=== PATIENT | female | born 1960 | race Caucasian/White ===

== ENCOUNTER → 2025-01-27 | Outpatient (CLI) | payer OTHER, SELFPAY | END | disposition home or self-care (01) | LOC: LABSPEC 16:50 | PROVIDERS: Referring Provider Nurse Practitioner Family; Visit Provider Nurse Practitioner Family | DX: N89.8 Other specified noninflammatory disorders of vagina (principal) | CPT/HCPCS: 87070; 87077; 87205 ==

== ENCOUNTER → 2025-03-10 | Outpatient (CLI) | payer OTHER, SELFPAY ==
[2025-03-13 14:08] LABS: HSV Culture Without Typing Positive (.)
== END | disposition home or self-care (01) ==
LOC: LABSPEC 16:40
PROVIDERS: Referring Provider Nurse Practitioner Family; Visit Provider Nurse Practitioner Family
DX: Z11.3 Encounter for screening for infections with a predominantly sexual mode of transmission (principal); N89.8 Other specified noninflammatory disorders of vagina
CPT/HCPCS: 87255

== ENCOUNTER → 2025-03-21 | Outpatient (CLI) | payer OTHER, SELFPAY ==
--- OUTSIDE RECORDS SUMMARY | 2025-03-21 21:57 | XMS RPT_ITS | CCD ---
Author Organization [facility] Care Team Providers Care Barn And Property Manager Name Role Phone JUSTIN LAI, DR ACOSTA Primary Care Physician [phone] Unavailable Primary Care Provider Unavailabl monica VACCAREBETHI ALTAGRACIA, ARELI Attending Unavailab le ROMAR DO, DR ACOSTA Primary Care Unavailable ROMAR DO, DR ACOSTA Attending Unavailable ROMAR DO, DR ACOSTA Primary Care Unavailable W[place]ON HEAD SAWYER-FAST FOOD COOK, JOSELIN Attending Unavailabl e ROMAR DO, DR ACOSTA Primary Care Unavailable LALITA CHARLES, DR ADLER Attending Unavailabl e ROMAR DO, DR ACOSTA Primary Care Unavailable ROMAR DO, DR ACOSTA Primary Care Unavailable ROMAR DO, DR ACOSTA Attending Unavailable ROMAR DO, DR ACOSTA Primary Care Unavailable ROMAR DO, DR ACOSTA Attending Unavailable ROMAR DO, DR ACOSTA Attending Unavailable ROMAR DO, DR ACOSTA Primary Care Unavailable ROMAR DO, DR ACOSTA Attending Unavailable ROMAR DO, DR ACOSTA Primary Care Unavailable Reshma TIMBER KILLER-C, Grisel Attending Provider Reshma TIMBER KILLER-C, Grisel Referring Provider Grisel Justice Attending Unavailable Valeriaman, Grisel Referring Unavailable BarkmanGrisel Attending Unavailable BarkmanRichardGrisel Referring Unavailable Barkman, Grisel Attending Unavailable Barkman, Grisel Attending Unavailable Allergies Allergy Classification Reported Allergen(s) Allergy Type Date of Onset Reaction(s) Facility (11 sources) Codeine; Translations: [codeine] Drug Allergy 5 nausea, Upset Stomach [facility] (11 sources) Erythromycin; Translations: [erythromycin] Drug Allergy 5 nausea, Upset Stomach [facility] (9 sources) ferrous sulfate; Translations: [ferrous sulfate] Drug Allergy Nausea (finding) [facility] (1 source) Codeine Drug Allergy 5 [facility] (1 source) Erythromycin Drug Allergy 5 [facility] Medications Current Medications Medication Drug Class(es) Dates Sig (Normalized) Sig (Original) betamethasone 0.5 mg/ml topical cream (2 sources) Corticosteroid Start: 04-30-2023 End: 05-28-2023 betamethasone dipropionate 0.05% topical cream Apply 1 yoan, Topical, qDay, PRN Rash, to affected area. Do not use longer than 14 days consecutively without taking at least 7 days off., X 14 day(s), # 15 gram(s), 1 Refill(s), Pharmacy: [facility]/pharmacy #[id number], Cream, 165.1, cm, 04/30/23 9:22:00 EDT, Height, 106.9, kg, 04/30/23 9:22:00 EDT, Dosing Weight Start Date: 04/30/23 Stop Date: 05/28/23 Status: Ordered cephalexin 500 mg oral capsule (1 source) Cephalosporin Antibacterial Start: 05-30-2023 End: 06-06-2023 cephalexin 500 mg oral capsule Dose : 500 mg = 1 cap(s), Oral, q8h, X 7 day(s), # 21 cap(s), 0 Refill(s), 06/06/23 8:19:00 AM EDT, Pharmacy: [facility] #[id number], UTI (urinary tract infection), 165.1, cm, 05/30/23 8:00:00 EDT, Height, 106.6, kg, 05/30/23 8:00:00 EDT, Dosing Weight Start Date: 05/30/23 Stop Date: 06/06/23 Status: Ordered clobetasol propionate 0.0005 mg/mg topical ointment (2 sources) Corticosteroid Start: 03-10-2025 Clobetasol 0.05 % ointment Active 1 NMA TOPICAL TWICE A DAY 30 March 10, 2025 12:00am March 23, 2025 12:00am Start: 06-20-2023 End: 09-18-2023 clobetasol 0.05% topical oin tment Apply 1 yoan, Topical, BID, PRN Rash, apply a thin film, # 45 gram(s), 2 Refill(s), Pharmacy: [facility]/pharmacy #[id number], Ointment, 165.1, cm, 06/20/23 12:58:00 EDT, Height, 106.8, kg, 06/20/23 13:05:00 EDT, Dosing Weight Start Date: 06/20/23 Stop Date: 09/18/23 Status: Ordered docusate calcium 240 mg oral capsule (3 sources) Start: 06-10-2023 End: 08-09-2023 docusate calcium 240 mg oral capsule Dose : 240 mg = 1 cap(s), Oral, Daily, PRN as needed for constipation, with plenty of water, # 30 cap(s), 1 Refill(s), Pharmacy: [facility]/pharmacy #[id number], 165.1, cm, 06/10/23 16:25:00 EDT, Height, kg, 06/10/23 16:25:00 EDT, Dosing Weight Start Date: 06/10/23 Stop Date: 08/09/23 Status: Ordered Start: 10-20-2014 End: 01-27-2025 take 1 capsule by mouth twice daily as needed for constipation Docusate Sodium (Dok) 100 MG capsule Discontinued 100 mg PO TWICE DAILY NEEDED as needed for Constipation 60 October 20, 2014 1:00am January 27, 2025 3:05pm DULoxetine 30 mg delayed release oral capsule (1 source) Serotonin and Norepinephrine Reuptake Inhibitor Start: 08-07-2023 End: 10-06-2023 DULoxetine 30 mg oral delayed release capsule Dose : 30 mg = 1 cap(s), Oral, qDay, do not crush or chew, # 60 cap(s), 0 Refill(s), Pharmacy: [facility]/pharmacy #[id number], 168, cm, 08/07/23 16:23:00 EDT, Height, kg, 08/07/23 16:23:00 EDT, Dosing Weight Start Date: 08/07/23 Stop Date: 10/06/23 Status: Ordered estradiol 0.1 mg/ml vaginal cream (4 sources) Estrogen Start: 01-27-2025 Estradiol 0.01 % (0.1 mg/gram) cream Active 0 VAGINAL DAILY 42.5 January 27, 2025 12:00am pea sized amount using finger tip method every night x 2 weeks then 2-3 times a week there after. Start: 10-20-2014 End: 01-27-2025 take 2 tablets by mouth once daily Estradiol (Estrace) 0.5 MG tablet Discontinued 1 mg PO DAILY 90 October 20, 2014 1:00am January 27, 2025 3:05pm magnesium oxide 400 mg oral tablet (2 sources) Start: 10-14-2024 End: 11-13-2024 magnesium oxide 400 mg oral tablet Dose : 400 mg = 1 tab(s), Oral, qDay, X 30 day(s), # 30 tab(s), 0 Refill(s), 11/13/24 11:45:00 AM EST, [id number], 164.2, cm, 09/22/24 15:55:00 EST, Height, kg, 09/22/24 15:55:00 EST, Dosing Weight Start Date: 10/14/24 Stop Date: 11/13/24 Status: Ordered Quantity: 30.0 Unit: tab(s) Repeat number: 1 meloxicam 15 mg oral tablet (1 source) Nonsteroidal Anti-inflammatory Drug Start: 06-10-2023 End: 07-10-2023 meloxicam 15 mg oral tablet Dose : 15 mg = 1 tab(s), Oral, qDayM, PRN Pain, Take with food/milk and fluids. Do not take any other NSAIDs while on this medication., # 30 tab(s), 0 Refill(s), Pharmacy: [facility]/pharmacy #[id number], 165.1, cm, 06/10/23 16:25:00 EDT, Height, kg, 06/10/23 16:25:00 EDT, Dosing Weight Start Date: 06/10/23 Stop Date: 07/10/23 Status: Ordered sertraline 25 mg oral tablet (1 source) Serotonin Reuptake Inhibitor Start: 06-10-2023 End: 09-08-2023 sertraline 25 mg oral tablet Dose : 25 mg = 1 tab(s), Oral, qDay, # 90 tab(s), 0 Refill(s), Pharmacy: [facility]/pharmacy #[id number], 165.1, cm, 06/10/23 16:25:00 EDT, Height, kg, 06/10/23 16:25:00 EDT, Dosing Weight Start Date: 06/10/23 Stop Date: 09/08/23 Status: Ordered Completed/Discontinued Medications Medication Drug Class(es) Dates Sig (Normalized) Sig (Original) [facility] STOOL SOFTENER 240 MG SFGL (3 sources) Start: 06-20-2023 take 1 capsule by mouth once daily for constipation [facility] STOOL SOFTENER 240 MG SFGL [facility] STOOL SOFTENER 240 MG SFGL, 1 CAP(S) ORAL DAILY,X30 DAY(S),PRN: NEEDED FOR CONSTIPATION,INSTR :WITH PLENTY OF WATER Start Date: 06/20/23 Status: Ordered oxyCODONE hydrochloride 5 mg oral tablet (2 sources) Opioid Agonist Start: 10-20-2014 End: 01-27-2025 take 5-10 mg by mouth every four hours as needed for pain Oxycodone 5 MG tablet Discontinued 5 - 10 mg PO EVERY 4 HOURS NEEDED as needed for Mod-Severe (Pain Scale 6-10) October 20, 2014 1:00am January 27, 2025 3:05pm predniSONE 5 mg oral tablet (1 source) Start: 06-20-2023 take 1 tablet by mouth once daily at mealtime predniSONE 5 mg oral tablet See Instructions, taper from 10 to 1 (10 on day 1, 9 on day 2...) with food or milk, # 55 tab(s), 0 Refill(s), Pharmacy: [facility]/pharmacy #[id number], 165.1, cm, 06/20/23 12:58:00 EDT, Height, kg, 06/20/23 13:05:00 EDT, Dosing Weight Start Date: 06/20/23 Status: Ordered valACYclovir 1000 mg oral tablet (1 source) Herpesvirus Nucleoside Analog DNA Polymerase Inhibitor, Herpes Simplex Virus Nucleoside Analog DNA Polymerase Inhibitor, Herpes Zoster Virus Nucleoside Analog DNA Polymerase Inhibitor Start: 06-20-2023 End: 06-30-2023 valACYclovir 1 g oral tablet Dose : 1 gram(s) = 1 tab(s), Oral, TID, drink plenty of fluids, X 10 day(s), # 30 tab(s), 0 Refill(s), 06/30/23 1:24:00 PM EDT, Pharmacy: [facility]/pharmacy #[id number], 165.1, cm, 06/20/23 12:58:00 EDT, Height, 106.8, kg, 06/20/23 13:05:00 EDT, Dosing Weight Start Date: 06/20/23 Stop Date: 06/30/23 Status: Ordered Problems Problem Classification Problem Date Documented Da te Episodic/Chronic Acute and chronic tonsillitis (9 sources) Exudate on tonsils 04-30-2023 Chronic Cancer of cervix (9 sources) Low grade squamous intraepithelial lesion on cervical Papanicolaou smear 11-26-2019 Episodic Conditions associated with dizziness or vertigo (18 sources) Benign paroxysmal positional vertigo; Translations: [Dizziness] 05-28-2021 Episodic Diabetes mellitus without complication (18 sources) Hyperglycemia; Translations: [Prediabetes] 11-29-2019 Episodic Disorders of lipid metabolism (8 sources) Mixed hyperlipidemia 05-09-2023 Chronic Comment on above: 05/04 ASCVD risk 3.7% 10/05 ASCVD risk 4.3 % Genitourinary symptoms and ill-defined conditions (15 sources) Blood in urine; Translations: [Bacteriuria] Onset: 05-30-2023 06-27-2021 Episodic Immunizations and screening for infectious disease (1 source) Encounter for screening for infections with a predominantly sexual mode of transmission; Translations: [Encounter for screening for infections with a predominantly sexual mode of transmission] Onset: 03-15-2025 Episodic Lymphadenitis (9 sources) Acute lymphadenitis 09-19-2020 Episodic Menopausal disorders (9 sources) Postmenopausal bleeding 05-28-2021 Chronic Mood disorders (6 sources) Acute depression 06-10-2023 Chronic Other connective tissue disease (4 sources) Spasm 08-07-2023 Episodic Other ear and sense organ disorders (9 sources) Otalgia 09-19-2020 Episodic Other female genital disorders (9 sources) Vaginal dryness 06-27-2021 Episodic Other female genital disorders (4 sources) Vaginal discharge; Translations: [Other specified noninflammatory disorders of vagina] 01-27-2025 Episodic Other female genital disorders (2 sources) Vaginal lesion; Translations: [Other specified noninflammatory disorders of vagina] 03-10-2025 Episodic Other female genital disorders (1 source) Other specified noninflammatory disorders of vagina; Translations: [Other specified noninflammatory disorders of vagina] Onset: 02-02-2025 Episodic Other gastrointestinal disorders (6 sources) Constipation 06-10-2023 Episodic Other infections; including parasitic (9 sources) H/O: viral illness 11-26-2019 Episodic Other liver diseases (3 sources) Large liver 09-22-2024 Episodic Other lower respiratory disease (4 sources) Rib pain 08-07-2023 Episodic Other nervous system disorders (9 sources) Disorder of nervous system 04-12-2019 Episodic Other nervous system disorders (3 sources) Numbness and tingling sensation of skin 09-22-2024 Episodic Other nutritional; endocrine; and metabolic disorders (3 sources) Hypomagnesemia 09-15-2023 Chronic Other skin disorders (14 sources) Lichen sclerosus et atrophicus; 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 Other skin disorders (9 sources) Skin lesion 11-26-2019 Episodic Other upper respiratory infections (3 sources) Acute sinusitis 01-08-2023 Episodic Residual codes; unclassified (9 sources) Flushing 05-28-2021 Episodic Residual codes; unclassified (3 sources) Immunization due 11-26-2019 Episodic Residual codes; unclassified (3 sources) Peripheral edema 09-22-2024 Episodic Spondylosis; intervertebral disc disorders; other back problems (20 sources) Backache; Translations: [Lumbar disc prolapse with radiculopathy] 11-27-2017 Episodic Comment on above: lumbar area Unclassified (9 sources) Mental state finding 05-28-2021 Unclassified (9 sources) Patient encounter status 11-29-2019 Comment on above: 12/02 ASCVD risk 2.1% 05/04 ASCVD risk 3.7% Urinary tract infections (2 sources) Urinary tract infection, site not specified; Translations: [Urinary tract infection, site not specified] Onset: 05-07-2024 Episodic Viral infection (6 sources) Herpes zoster 06-20-2023 Episodic Results Test Name Value Interpretation Reference Range Facility HSV Culture Screenon 025 HSV CULTURE Positive Abnormal . [facility] Comment on above: Result Comment: Perf ormed at: CB - [facility] [address] [id number] Cook Jelly: Kit Ibarra PhD, Phone: [phone] Performed By: #### L [id number] #### [facility] [address] [place], [address] Film Casting Operator Office Visit Reporton 03-10-2025 Film Casting Operator Office Visit Report [facility] [address], [address] [place] [address] OFFICE VISIT Date of Service: 03/10/25 MR#: [id number] Acct: [id number] Name: ESTIVEN DOBSON Rep #: [id number] : 1960 Provider: NANCY Howard Age/Sex: 64/F [place] [facility] [place]: Signed Intake Vital Signs 01/27/25 14:59 03/10/25 15:31 Height 5 ft 5 in 5 ft 5 in Weight: 248 lb 247 lb 6 oz BMI 41.2 41.1 BP 124/78 H 142/83 H Intake Visit Reasons: 6 WK MED CHECK Design Eng Required: No Is patient in pain?: No Allergies codeine Adverse Reaction (Verified 03/10/25 15:29) Upset Stomach erythromycin base (Erythromycin Base) Adverse Reaction (Verified 03/10/25 15:29) Upset Stomach Medications ???Medication ???Instructions ???Recorded ???Confirmed ???Type estradiol 0.01% (0.1 mg/gram) See Rx Instructions vaginal DAILY 01/27/25 03/10/25 Rx vaginal cream #42.5 grams amoxicillin 500 mg tablet 500 mg PO Q8H 7 days #21 tabs 02/1103/10/25 Rx clobetasol 0.05 % topical ointment 1 applic topical BID 2 weeks #30 03/10/25 03/10/25 Rx grams Is last menstrual period known: No Post menopausal: Yes Patient : No : No Control Method: menopause PFSH Medical History Lichen sclerosus Surgical History Hx of cholecystectomy H/O section H/O: hysterectomy Family History Mother Afib Hypertension Colon cancer Father Hypertension Parkinson disease Social History adopted: No number of children: 3 current occupational status: employed current occupation: [employer] sexually active: Yes Smoking Status: Never smoker alcohol intake: current alcohol intake frequency: holidays/special occasions only substance use type: does not use seatbelt use: always do you feel safe at home: Yes HPI 6 WK MED CHECK Details: ESTIVEN DOBSON is a 64 year old who presents for recheck of lichens. She continues to use clobetasol. She has this at home. Reports she is using a clear ointment/gel depending on where she is at. She feels that she is in a flare right now specifically to the left side of her vulva. She was given estradiol at last visit; does not feel this was helpful. She does report stress with her family--feels when this is going on her symptoms worsen and she goes into flares. History 3 Elective abortions Hx Para 3 Spontaneous abortions Hx # Term Pregnancies Ectopic pregnancies Hx # Pregnancies Multiple births # of living children 3 ROS Const Constitutional: Denies chills or fatigue : Reports genital pruritis, vaginal dryness and vaginal pruritus; Denies genital lesions, pelvic pain, vaginal discharge or vaginal odor Skin Skin/Breast: Reports as per HPI Exam Const General: cooperative, healthy appearing, comfortable, no acute distress, well groomed and well hydrated Nutritional Appearance: well nourished Orientation: alert, awake and oriented x3 Resp Effort Inspection: normal respiratory effort, able to speak in complete sentences and symmetric chest movement External Female Exam: normal external appearance and normal appearance of the urethra Urethra: normal appearance of the urethra Speculum Exam - Vagina: normal appearance of the vagina, normal vaginal discharge, vagina atrophic (with lichens from suprapubic to anus.), lesion (left labia; painful ulceration) and nontender Skin General: no rashes or lesions noted Neuro General: patient alert, patient awake, patient oriented x3 and moves all extremities Psych Appearance: grossly normal Mental Status: mental status grossly normal Affect: normal affect Speech and Movement: speech and movement normal Attitude: cooperative Coding Level of Care Code Established Pt Off vis,est,level 4 Patient Type Established Diagnoses Lichen sclerosus L90.0 Vaginal lesion N89.8 Situational stress F43.9 Additional Codes PHQ-9 (44056) TRINI-7 (45830) Assessment and Plan Assessment and Plan (1) Lichen sclerosus: Status: Acute Plan: Continue with clobetasol. Refill sent to ensure she is using ointment form. (2) Vaginal lesion: Status: Acute Plan: HSV culture obtained; patient declines titers/bloodwork. Treat for previous Group G Strep positive culture; amoxicillin 500mg TID x 7 days. RTO in 4 weeks with SM--if not improved biopsy recommended. (3) Situational stress: Status: Acute Comment: TRINI 7 and PHQ 9 Completed. Plan: Scores of 0 on both screenings. Suggestive of situational stress with family. She will seek counseling services. Call office with (more content not included)... Normal [facility] Genital Culture Comprehensiv ivory 01-31-2025 VAC Reason for Exam: vag inal discharge #1 Penicillin is the drug of choice for Beta Streptococcal infections. For Penicillin allergic patients, Erythromycin may be used. Genital Culture Comprehensive No yeast, Gardnerella, or Neisseria isolated. Streptococcus group G Amount Growth Rare Normal [facility] Comment on above: Performed By: #### M 100, M100.3200 #### [facility] [address] [facility]. [place], [place], [id number] Genital cultureOrdered By: Joe Justice on 01-27-2025 Genital Culture Streptococcus group G Abnormal [facility] Gram Stainon 01-27-2025 GS Reason for Exam: vag inal discharge Gram Stain 2+ Gram positive rods 2+ Gram variable dana No Gram negative diplococci Score =4 Interpretation: 0-3 Normal, 4-6 Intermediate, 7-10 Positive BV Normal [facility] Comment on above: Performed By: #### M 100, M100.3200 #### [facility] [address] [facility]. [place], [place], [id number] Gram stainOrdered By: Grisel Justice on 01-27-2025 Microscopic observation Gram stain Nom (Unsp spec) [facility] Film Casting Operator Office Visit Reporton 01-27-2025 Film Casting Operator Office Visit Report [facility] [address], [address] [place] [address] OFFICE VISIT Date of Service: 01/27/25 MR#: [id number] Acct: [id number] Name: ESTIVEN DOBSON Rep #: [id number] : 1960 Provider: NANCY Howard Age/Sex: 64/F Location[place] [facility] [place] Status: Signed Intake Vital Signs 10/20/14 10:37 01/27/25 14:59 Height 5 ft 5 in 5 ft 5 in Weight: 248 lb BMI 41.2 BP 124/78 H Intake Visit Reasons: LICHEN SCLEROSIS (GIL FAM PHYS) Design Eng Required: No Is patient in pain?: No Allergies codeine Adverse Reaction (Verified 01/27/25 15:04) Upset Stomach erythromycin base (Erythromycin Base) Adverse Reaction (Verified 01/27/25 15:04) Upset Stomach Medications ???Medication ???Instructions ???Recorded ???Confirmed ???Type estradiol 0.01% (0.1 mg/gram) See Rx Instructions vaginal DAILY 01/27/25 01/27/25 Rx vaginal cream #42.5 grams Is last menstrual period known: No Post menopausal: Yes Patient : No : No Control Method: hysterectomy PFSH Medical History (Updated 01/27/25 @ 15:42 by NANCY Benítez) Lichen sclerosus Surgical History (Updated 01/27/25 @ 15:10 by Savita Lobato) Hx of cholecystectomy H/O section H/O: hysterectomy Family History (Updated 01/27/25 @ 15:06 by Savita Lobato) Mother Afib Hypertension Colon cancer Father Hypertension Parkinson disease Social History (Updated 01/27/25 @ 15:07 by Savita Lobato) adopted: No number of children: 3 current occupational status: employed current occupation: [employer] sexually active: Yes Smoking Status: Never smoker alcohol intake: current alcohol intake frequency: holidays/special occasions only substance use type: does not use seatbelt use: always do you feel safe at home: Yes HPI LICHEN SCLEROSIS (GIL FAM PHYS) Details: ESTIVEN DOBSON is a 64 year old who presents for lichens sclerosis. She reports this was diagnosed greater than 10 years ago. She reports she has dryness to her vaginal tissues. She reports itching; burning/pins and needles to the vaginal tissue. She is status post hysterectomy. Has clobetasol at home to treat; uses this sparingly. History 3 Elective abortions Hx Para 3 Spontaneous abortions Hx # Term Pregnancies Ectopic pregnancies Hx # Pregnancies Multiple births # of living children 3 ROS Const Constitutional: Denies chills or fatigue : Reports genital pruritis, vaginal dryness and vaginal pruritus; Denies genital lesions, pelvic pain, vaginal discharge or vaginal odor Skin Skin/Breast: Reports as per HPI Exam Const General: cooperative, healthy appearing, comfortable, no acute distress, well groomed and well hydrated Nutritional Appearance: well nourished Orientation: alert, awake and oriented x3 Resp Effort Inspection: normal respiratory effort, able to speak in complete sentences and symmetric chest movement External Female Exam: normal external appearance and normal appearance of the urethra Urethra: normal appearance of the urethra Speculum Exam - Vagina: normal appearance of the vagina, abnormal vaginal discharge (thick) white, vagina atrophic (with lichens from suprapubic to anus.), no lesions and nontender Skin General: no rashes or lesions noted Neuro General: patient alert, patient awake, patient oriented x3 and moves all extremities Psych Appearance: grossly normal Mental Status: mental status grossly normal Affect: normal affect Speech and Movement: speech and movement normal Attitude: cooperative Coding Level of Care Code Established Pt Off vis,new,level 4 Patient Type Established Diagnoses Lichen sclerosus L90.0 Vaginal discharge N89.8 Assessment and Plan Assessment and Plan (1) Lichen sclerosus: Status: Acute Plan: Continue with clobetasol. Has refills at home add on estradiol cream. Instructions of use discussed. Follow up 6 weeks for med check. (2) Vaginal discharge: Status: Acute Plan: culture obtained; treat based on results. Orders: Orders Culture, Genital Comprehensive Today N89.8 - Other specified noninflammatory disorders of vagina Medications: New estradiol 0.01%(0.1mg/gram) pea sized amount using finger tip method every night x 2 weeks then 2-3 times a week there after. 42.5 grams 0RF Discontinued oxycodone Discontinued Reason: Pt no longer taking 5 - 10 mg (1 - 2 x 5 mg) PO Q4H PRN PRN 30 TABLETS 0RF Mod-Severe (Pain Scale 6-10) docusate sodium (DOK) Discontinued Reason: Pt no longer taking 100 mg PO BID PRN PRN 60 caps 0RF Constipation estradiol (Estrace) Discontinued Reason: Pt no longer taking 1 mg (2 x 0.5 mg) PO DAILY 90 tabs 4RF 01/27/25 1544 Date (more content not included)... Normal [facility] INTABon 10-24-2024 Intrinsic Factor Abs 1.1 Au/mL Normal 0.0-1.1 [facility] Comment on above: Result Comment: Perf ormed At: [address] [id number] Dillan Espinosa MD Ph:[phone] Performed By: #### A DIFF, MG, GFR, ANEU, CBC, PBNP, CMP, LIPID #### [address] [address] #### B12 #### [place] [address] Michele 10-22-2024 Gastrin 15 pg/mL Normal 0-115 [facility] Comment on above: Result Comment: [facility] [email or web address] 2000 Immunochemiluminometric assay (ICMA) Values obtained with different assay methods or kits cannot be used interchangeably. Results cannot be interpreted as absolute evidence of the presence or absence of malignant disease. Performed At: [address] [id number] Dillan Espinosa MD Ph:[phone] Performed By: #### A DIFF, MG, GFR, ANEU, CBC, PBNP, CMP, LIPID #### [address] [address] #### B12 #### [place] [address] Michele 10-20-2024 Fasting Y Yes Normal [facility] Comment on above: Performed By: #### A DIFF, MG, GFR, ANEU, CBC, PBNP, CMP, LIPID #### [place] [address] #### B12 #### [place] [address] LABORATORYOrdered By: Deepa Gay on 10-20-2024 Fasting (LC) Y Yes (10/20/24 3:31 PM) Normal AO [facility]outs SS LABORATORYOrdered By: SYSTEM SYSTEM on 10-20-2024 Magnesium [Mass/Vol] 2.0 mg/dL Normal 1.8 - 2 .4 mg/dL AO ADM SS MGon 10-20-2024 Magnesium [Mass/Vol] 2.0 mg/dL Normal 1.8-2.4 [facility] Comment on above: Performed By: #### 0 [id number], MG, [id number] #### [address] [address] [place] MAMMOGRAM SCREENING BILAT ERAL W/TOMOon 10-05-2024 MA MAMMOGRAM SCREENING BILATERAL W/LINK ORIGINAL FROM: [address] [address] PROCEDURE FOR: ESTIVEN DOBSON [address] [place] [id number] Home: PID#: [id number] Exam#: [id number] : 1960 Age: 64 TO: DAVE LE DO [address] [place], [place] [address] Fax: NO FAX EXAMINATION: SCREENING DIGITAL BILATERAL MAMMOGRAM WITH TOMOSYNTHESIS, 10/04/2024 3:04 pm TECHNIQUE: Screening mammography of the bilateral breasts was performed with tomosynthesis. 2D standard and 3D tomosynthesis combination imaging performed through both breasts in the MLO and CC projection. Computer aided detection was utilized in the interpretation of this exam. COMPARISON: June 25, 2023, June 08, 2021, December 01, 2019 HISTORY: Breast cancer screening. FINDINGS: BREAST DENSITY: There are scattered areas of fibroglandular density. There are bilateral benign-type calcifications. There is no significant mass, architectural distortion or microcalcification. Fibroglandular pattern is stable. IMPRESSION: No mammographic evidence of malignancy. Continued screening with annual mammograms is recommended. Tima Trinh risk calculations, generated with the history provided, report this patient's 10 year risk and lifetime risk for developing breast cancer at 4.2% and 9.4%, respectively. Based on this assessment tool, if the patient's calculated lifetime risk is below 20%, then the patient is considered at average risk for developing breast cancer. If the patient's calculated lifetime risk is at or above 20%, then the patient is considered high risk for developing breast cancer and may be a candidate for supplemental breast MRI screening in addition to annual mammographic screening per the [employer]. BIRADS: MAMMOGRAM BI-RADS: 2: Benign finding RECALL: 1 year screening RECALL TYPE: mammo LETTER SENT: Normal BI-RADS 1 and 2 Interpreted by: Ashtyn Alcantara Preliminary Report By: Ashtyn Alcantara Electronically signed By Ashtyn Alcantara Dictated Date: 10/05/2024 6:27:29 AM Prelim Date: 10/05/2024 6:32:33 AM Sign Date: 10/05/2024 6:32:33 AM Ordering Provider: DAVE LE Tacking Stitch Remover: ROLY BRAVO RT(R)(M)(CT) letter sent: Normal BI-RADS 1 and 2 Mammogram BI-RADS: 2 Benign Normal [facility] .Auto Diffon 10-04-2024 Basophil, Absolute 0.1 10 3/mcL Normal 0.0-0.2 [facility] Comment on above: Performed By: #### A DIFF, MG, GFR, ANEU, CBC, PBNP, CMP, LIPID #### [place] [address] #### B12 #### [address] [address] Basophils/100 WBC (Bld) 0.7 % Normal 0.0-2.5 [facility] Comment on above: Performed By: #### A DIFF, MG, GFR, ANEU, CBC, PBNP, CMP, LIPID #### [address] [address] #### B12 #### [address] [address] Eosinophil, Absolute 0.2 10 3/mcL Normal 0.0-0.7 [facility] Comment on above: Performed By: #### A DIFF, MG, GFR, ANEU, CBC, PBNP, CMP, LIPID #### [place] [id number] #### B12 #### [address] [address] Eosinophils/100 WBC (Bld) 1.9 % Normal 0.0-7.0 [facility] Comment on above: Performed By: #### A DIFF, MG, GFR, ANEU, CBC, PBNP, CMP, LIPID #### [place] [address] #### B12 #### [address] [address] Lymphocyte, Absolute 3.0 10 3/mcL Normal 0.9-4.3 [facility] Comment on above: Performed By: #### A DIFF, MG, GFR, ANEU, CBC, PBNP, CMP, LIPID #### [place] [address] #### B12 #### [address] [address] Lymphocytes/100 WBC (Bld) 34.9 % Normal 20.0-40.0 [facility] Comment on above: Performed By: #### A DIFF, MG, GFR, ANEU, CBC, PBNP, CMP, LIPID #### [place] [address] #### B12 #### [address] [address] Monocyte, Absolute 0.4 10 3/mcL Normal 0.1-1.4 [facility] Comment on above: Performed By: #### A DIFF, MG, GFR, ANEU, CBC, PBNP, CMP, LIPID #### [place] [address] #### B12 #### [address] [address] Monocytes/100 WBC (Bld) 5.0 % Normal 2.0-13.0 [facility] Comment on above: Performed By: #### A DIFF, MG, GFR, ANEU, CBC, PBNP, CMP, LIPID #### [place] [address] #### B12 #### [address] [address] Neutrophils/100 WBC (Bld) 57.5 % Normal 50.0-75.0 [facility] Comment on above: Performed By: #### A DIFF, MG, GFR, ANEU, CBC, PBNP, CMP, LIPID #### [address] [address] #### B12 #### [address] [address] .GFRon 10-04-2024 GFR 95 ml/min/1.73sqm Normal [facility] Comment on above: Result Comment: GFR Population mean for , Non- Americans Ages 20-29 = 116 mL/min/1.73 sq.m. Ages 30-39 = 107 mL/min/1.73 sq.m. Ages 40-49 = 99 mL/min/1.73 sq.m. Ages 50-59 = 93 mL/min/1.73 sq.m. Ages 60-69 = 85 mL/min/1.73 sq.m. Ages 70+ = 75 mL/min/1.73 sq.m. Chronic Kidney Disease: Less than 60 mL/min/1.73 square meters End Stage Renal Disease: Less than 15 mL/min/1.73 square meters Performed By: #### A DIFF, MG, GFR, ANEU, CBC, PBNP, CMP, LIPID #### [address] [address] #### B12 #### [address] [address] GFR Non- 78 ml/min/1.73sqm Normal [facility] Comment on above: Result Comment: GFR Population mean for , Non- Americans Ages 20-29 = 116 mL/min/1.73 sq.m. Ages 30-39 = 107 mL/min/1.73 sq.m. Ages 40-49 = 99 mL/min/1.73 sq.m. Ages 50-59 = 93 mL/min/1.73 sq.m. Ages 60-69 = 85 mL/min/1.73 sq.m. Ages 70+ = 75 mL/min/1.73 sq.m. Chronic Kidney Disease: Less than 60 mL/min/1.73 square meters End Stage Renal Disease: Less than 15 mL/min/1.73 square meters Performed By: #### A DIFF, MG, GFR, ANEU, CBC, PBNP, CMP, LIPID #### [address] [address] #### B12 #### [address] [address] .NEUABSon 10-04-2024 Neutrophil, Absolute 4.9 10 3/mcL Normal 2.3-8.1 [facility] Comment on above: Performed By: #### A DIFF, MG, GFR, ANEU, CBC, PBNP, CMP, LIPID #### [address] [address] #### B12 #### [address] [address] B12on 10-04-2024 Cobalamin (Vitamin B12) [Mass/Vol] 360 pg/mL Normal 211-911 [facility] Comment on above: Performed By: #### A DIFF, MG, GFR, ANEU, CBC, PBNP, CMP, LIPID #### [address] [address] #### B12 #### [address] [address] CBCon 10-04-2024 Erythrocyte distribution width (RBC) [Ratio] 12.4 % Normal 11.5-15.5 [facility] Comment on above: Performed By: #### A DIFF, MG, GFR, ANEU, CBC, PBNP, CMP, LIPID #### [address] [address] #### B12 #### [address] [address] Hematocrit (Bld) [Volume fraction] 41.2 % Normal 34.0-46.0 [facility] Comment on above: Performed By: #### A DIFF, MG, GFR, ANEU, CBC, PBNP, CMP, LIPID #### [place] [id number] #### B12 #### [address] [address] Hgb 14.1 G/dL Normal 12.0-16.0 [facility] Comment on above: Performed By: #### A DIFF, MG, GFR, ANEU, CBC, PBNP, CMP, LIPID #### [place] [address] #### B12 #### [place] [address] MCH (RBC) [Entitic mass] 33.6 pg High 27.0-33.0 [facility] Comment on above: Performed By: #### A DIFF, MG, GFR, ANEU, CBC, PBNP, CMP, LIPID #### [place] [address] #### B12 #### [place] [address] MCHC 34.2 G/dL Normal 32.0-36.0 [facility] Comment on above: Performed By: #### A DIFF, MG, GFR, ANEU, CBC, PBNP, CMP, LIPID #### [place] [address] #### B12 #### [place] [address] MCV (RBC) [Entitic vol] 98.3 fL Normal 80.0-99.0 [facility] Comment on above: Performed By: #### A DIFF, MG, GFR, ANEU, CBC, PBNP, CMP, LIPID #### [place] [address] #### B12 #### [place] [address] Platelet 310 10 3/mcL Normal 150-450 [facility] Comment on above: Performed By: #### A DIFF, MG, GFR, ANEU, CBC, PBNP, CMP, LIPID #### [place] [address] #### B12 #### [address] [address] Platelet mean volume (Bld) [Entitic vol] 8.8 fL Normal 6.6-10.5 [facility] Comment on above: Performed By: #### A DIFF, MG, GFR, ANEU, CBC, PBNP, CMP, LIPID #### [address] [address] #### B12 #### [address] [address] RBC 4.19 10 6/mcL Normal 4.10-5.30 [facility] Comment on above: Performed By: #### A DIFF, MG, GFR, ANEU, CBC, PBNP, CMP, LIPID #### [address] [address] #### B12 #### [address] [address] WBC 8.5 10 3/mcL Normal 4.5-10.8 [facility] Comment on above: Performed By: #### A DIFF, MG, GFR, ANEU, CBC, PBNP, CMP, LIPID #### [address] [address] #### B12 #### [address] [address] CMPon 10-04-2024 Albumin Level 3.7 G/dL Normal 3.4-4.8 [facility] Comment on above: Performed By: #### A DIFF, MG, GFR, ANEU, CBC, PBNP, CMP, LIPID #### [address] [address] #### B12 #### [address] [address] Albumin/Globulin [Mass ratio] 1.1 {ratio} Normal 1.1-2.5 [facility] Comment on above: Performed By: #### A DIFF, MG, GFR, ANEU, CBC, PBNP, CMP, LIPID #### [address] [address] #### B12 #### [place] [id number] ALP [Catalytic activity/Vol] 102 U/L Normal 40-135 [facility] Comment on above: Performed By: #### A DIFF, MG, GFR, ANEU, CBC, PBNP, CMP, LIPID #### [address] [address] #### B12 #### [address] [address] ALT [Catalytic activity/Vol] 18 U/L Normal 14-59 [facility] Comment on above: Performed By: #### A DIFF, MG, GFR, ANEU, CBC, PBNP, CMP, LIPID #### [place] [address] #### B12 #### [place] [address] AST [Catalytic activity/Vol] 15 U/L Normal 10-40 [facility] Comment on above: Performed By: #### A DIFF, MG, GFR, ANEU, CBC, PBNP, CMP, LIPID #### [place] [address] #### B12 #### [place] [address] Bili Total 0.6 mg/dL Normal 0.2-1.0 [facility] Comment on above: Result Comment: Use of this assay is not recommended for patients undergoing treatment with eltrombopag due to the potential for falsely elevated results. Performed By: #### A DIFF, MG, GFR, ANEU, CBC, PBNP, CMP, LIPID #### [place] [address] #### B12 #### [place] [address] BUN/Creatinine Ratio 15 ratio Normal 7-27 [facility] Comment on above: Performed By: #### A DIFF, MG, GFR, ANEU, CBC, PBNP, CMP, LIPID #### [place] [address] #### B12 #### [place] [address] Calcium [Mass/Vol] 9.6 mg/dL Normal 8.4-10.2 [facility] Comment on above: Performed By: #### A DIFF, MG, GFR, ANEU, CBC, PBNP, CMP, LIPID #### [address] [address] #### B12 #### [address] [address] Chloride [Moles/Vol] 100 mmol/L Normal 98-107 [facility] Comment on above: Performed By: #### A DIFF, MG, GFR, ANEU, CBC, PBNP, CMP, LIPID #### [place] [address] #### B12 #### [place] [address] CO2 [Moles/Vol] 32 mmol/L High 23-31 [facility] Comment on above: Performed By: #### A DIFF, MG, GFR, ANEU, CBC, PBNP, CMP, LIPID #### [place] [address] #### B12 #### [place] [address] Creatinine [Mass/Vol] 0.75 mg/dL Normal 0.55-1.02 [facility] Comment on above: Result Comment: Test ing performed on Siemens Dimension EXL analyzer using a modified kinetic Esteban technique. Performed By: #### A DIFF, MG, GFR, ANEU, CBC, PBNP, CMP, LIPID #### [place] [address] #### B12 #### [address] [address] Electrolyte Balance 5.0 mEq/L Normal 4.0-15.0 [facility] Comment on above: Performed By: #### A DIFF, MG, GFR, ANEU, CBC, PBNP, CMP, LIPID #### [address] [address] #### B12 #### [place] [id number] Globulin 3.4 G/dL Normal [facility] Comment on above: Performed By: #### A DIFF, MG, GFR, ANEU, CBC, PBNP, CMP, LIPID #### [address] [address] #### B12 #### [address] [address] Glucose [Mass/Vol] 97 mg/dL Normal 80-115 [facility] Comment on above: Performed By: #### A DIFF, MG, GFR, ANEU, CBC, PBNP, CMP, LIPID #### [address] [address] #### B12 #### [address] [address] Potassium [Moles/Vol] 4.3 mmol/L Normal 3.5-5.1 [facility] Comment on above: Performed By: #### A DIFF, MG, GFR, ANEU, CBC, PBNP, CMP, LIPID #### [address] [address] #### B12 #### [address] [address] Sodium [Moles/Vol] 137 mmol/L Normal 136-145 [facility] Comment on above: Performed By: #### A DIFF, MG, GFR, ANEU, CBC, PBNP, CMP, LIPID #### [address] [address] #### B12 #### [address] [address] Total Protein 7.1 G/dL Normal 6.4-8.2 [facility] Comment on above: Performed By: #### A DIFF, MG, GFR, ANEU, CBC, PBNP, CMP, LIPID #### [address] [address] #### B12 #### [address] [address] Urea nitrogen [Mass/Vol] 11 mg/dL Normal 7-18 [facility] Comment on above: Performed By: #### A DIFF, MG, GFR, ANEU, CBC, PBNP, CMP, LIPID #### [place] [id number] [place], [place] [address] #### B12 #### [address] [address] LABORATORYOrdered By: SYSTEM SYSTEM on 10-04-2024 Albumin BCP dye [Mass/Vol] 3.7 G/dL Normal 3.4 - 4.8 G/dL AO ADM SS Albumin/Globulin [Mass ratio] 1.1 {ratio} Normal 1.1 - 2.5 ratio AO ADM SS ALP [Catalytic activity/Vol] 102 U/L Normal 40 - 135 U/L AO ADM SS ALT With P-5'-P [Catalytic activity/Vol] 18 U/L Normal 14 - 59 U/L AO ADM SS AST With P-5'-P [Catalytic activity/Vol] 15 U/L Normal 10 - 40 U/L AO ADM SS Basophils (Bld) [#/Vol] 0.1 103/mcL Normal 0.0 - 0.2 10^3/mcL AO Workflow SS Basophils/100 WBC (Bld) 0.7 % Normal 0.0 - 2.5 % AO Workflow SS Bilirubin [Mass/Vol] 0.6 mg/dL Normal 0.2 - 1 .0 mg/dL AO ADM SS Comment on above: Interpretive Data: U se of this assay is not recommended for patients undergoing treatment with eltrombopag due to the potential for falsely elevated results. Calcium [Mass/Vol] 9.6 mg/dL Normal 8.4 - 10. 2 mg/dL AO ADM SS Chloride [Moles/Vol] 100 mmol/L Normal 98 - 10 7 mmol/L AO ADM SS CO2 [Moles/Vol] 32 mmol/L High 23 - 31 mmol/L AO ADM SS Cobalamin (Vitamin B12) [Mass/Vol] 360 pg/mL Normal 211 - 911 pg/mL AH ADM SS Creatinine [Mass/Vol] 0.75 mg/dL Normal 0.55 - 1.02 mg/dL AO ADM SS Comment on above: Interpretive Data: T esting performed on Siemens Dimension EXL analyzer using a modified kinetic Esteban technique. Electrolyte Balance 5.0 mEq/L Normal 4.0 - 15 .0 mEq/L AO ADM SS Eosinophil, Absolute 0.2 103/mcL Normal 0.0 - 0 .7 10^3/mcL AO Workflow SS Eosinophils/100 WBC (Bld) 1.9 % Normal 0.0 - 7.0 % AO Workflow SS Erythrocyte distribution width (RBC) [Ratio] 12.4 % Normal 11.5 - 15.5 % AO Workflow SS GFR/1.73 sq M.predicted among blacks MDRD (S/P/Bld) [Vol rate/Area] 95 ml/min/1.73sqm Invalid Interpretation Code AO Chemistry S Comment on above: Interpretive Data: GFR Population mean for , Non- Americans Ages 20-29 = 116 mL/min/1.73 sq.m. Ages 30-39 = 107 mL/min/1.73 sq.m. Ages 40-49 = 99 mL/min/1.73 sq.m. Ages 50-59 = 93 mL/min/1.73 sq.m. Ages 60-69 = 85 mL/min/1.73 sq.m. Ages 70+ = 75 mL/min/1.73 sq.m. Chronic Kidney Disease: Less than 60 mL/min/1.73 square meters End Stage Renal Disease: Less than 15 mL/min/1.73 square meters GFR/1.73 sq M.predicted among non-blacks MDRD (S/P/Bld) [Vol rate/Area] 78 ml/min/1.73sqm Invalid Interpretation Code AO Chemistry S Comment on above: Interpretive Data: GFR Population mean for , Non- Americans Ages 20-29 = 116 mL/min/1.73 sq.m. Ages 30-39 = 107 mL/min/1.73 sq.m. Ages 40-49 = 99 mL/min/1.73 sq.m. Ages 50-59 = 93 mL/min/1.73 sq.m. Ages 60-69 = 85 mL/min/1.73 sq.m. Ages 70+ = 75 mL/min/1.73 sq.m. Chronic Kidney Disease: Less than 60 mL/min/1.73 square meters End Stage Renal Disease: Less than 15 mL/min/1.73 square meters Globulin 3.4 G/dL Invalid Interpretation Code AO ADM SS Glucose [Mass/Vol] 97 mg/dL Normal 80 - 115 mg/dL AO ADM SS Hematocrit (Bld) [Volume fraction] 41.2 % Normal 34.0 - 46.0 % AO Workflow SS Hemoglobin (Bld) [Mass/Vol] 14.1 G/dL Normal 12.0 - 16.0 G/dL AO Workflow SS Lymphocytes (Bld) [#/Vol] 3.0 103/mcL Normal 0.9 - 4.3 10^3/mcL AO Workflow SS Lymphocytes/100 WBC (Bld) 34.9 % Normal 20.0 - 40.0 % AO Workflow SS Magnesium [Mass/Vol] 1.6 mg/dL Low 1.8 - 2 .4 mg/dL AO ADM SS MCH (RBC) [Entitic mass] 33.6 pg High 27.0 - 33.0 pg AO Workflow SS MCHC 34.2 G/dL Normal 32.0 - 36.0 G/dL AO Workflow SS MCV (RBC) [Entitic vol] 98.3 fL Normal 80.0 - 99.0 fL AO Workflow SS Monocytes (Bld) [#/Vol] 0.4 103/mcL Normal 0.1 - 1.4 10^3/mcL AO Workflow SS Monocytes/100 WBC (Bld) 5.0 % Normal 2.0 - 13.0 % AO Workflow SS Natriuretic peptide.B prohormone N-Terminal [Mass/Vol] 76 pg/mL Normal 0 - 125 pg/mL AO ADM SS Comment on above: Interpretive Data: N T-proBNP results of less than 300 pg/mL effectively rules out acute congestive heart failure with 99% negative predictive value. Neutrophils (Bld) [#/Vol] 4.9 103/mcL Normal 2.3 - 8.1 10^3/mcL AO Workflow SS Neutrophils/100 WBC (Bld) 57.5 % Normal 50.0 - 75.0 % AO Workflow SS Platelet mean volume (Bld) [Entitic vol] 8.8 fL Normal 6.6 - 10.5 fL AO Workflow SS Platelets (Bld) [#/Vol] 310 103/mcL Normal 150 - 450 10^3/mcL AO Workflow SS Potassium [Moles/Vol] 4.3 mmol/L Normal 3.5 - 5.1 mmol/L AO ADM SS Protein [Mass/Vol] 7.1 G/dL Normal 6.4 - 8.2 G/dL AO ADM SS RBC (Bld) [#/Vol] 4.19 106/mcL Normal 4.10 - 5.3 0 10^6/mcL AO Workflow SS Sodium [Moles/Vol] 137 mmol/L Normal 136 - 145 mmol/L AO ADM SS Urea nitrogen [Mass/Vol] 11 mg/dL Normal 7 - 18 mg/dL AO ADM SS Urea nitrogen/Creatinine [Mass ratio] 15 ratio Normal 7 - 27 ratio AO ADM SS WBC (Bld) [#/Vol] 8.5 103/mcL Normal 4.5 - 10.8 10^3/mcL AO Workflow SS LABORATORYOrdered By: Bebe Vincent on 10-04-2024 Cholesterol [Mass/Vol] 254 mg/dL High 0 - 200 mg/dL AO ADM SS Comment on above: Interpretive Data: C holesterol Reference Interval: Less than 200 Desirable 200-239 Borderline high risk 240 and above High risk Cholesterol in HDL [Mass/Vol] 67 mg/dL High 40 - 60 mg/dL AO ADM SS Cholesterol in LDL [Mass/Vol] 161 mg/dL High 0 - 130 mg/dL AO ADM SS Triglyceride [Mass/Vol] 129 mg/dL Normal 0 - 150 mg/dL AO ADM SS Comment on above: Interpretive Data: T riglyceride Reference Interval: Less than 150 Normal 150-199 Borderline high risk 200-499 High risk 500 or higher Very high risk LIPIDon 10-04-2024 Cholesterol [Mass/Vol] 254 mg/dL High 0-200 [facility] Comment on above: Result Comment: Chol esterol Reference Interval: Less than 200 Desirable 200-239 Borderline high risk 240 and above High risk Performed By: #### A DIFF, MG, GFR, ANEU, CBC, PBNP, CMP, LIPID #### [address] [address] #### B12 #### [address] [address] Cholesterol in HDL [Mass/Vol] 67 mg/dL High 40-60 [facility] Comment on above: Performed By: #### A DIFF, MG, GFR, ANEU, CBC, PBNP, CMP, LIPID #### [address] [address] #### B12 #### [address] [address] Cholesterol in LDL [Mass/Vol] 161 mg/dL High 0-130 [facility] Comment on above: Performed By: #### A DIFF, MG, GFR, ANEU, CBC, PBNP, CMP, LIPID #### [address] [address] #### B12 #### [place] [address] Triglyceride [Mass/Vol] 129 mg/dL Normal 0-150 [facility] Comment on above: Result Comment: Trig lyceride Reference Interval: Less than 150 Normal 150-199 Borderline high risk 200-499 High risk 500 or higher Very high risk Performed By: #### A DIFF, MG, GFR, ANEU, CBC, PBNP, CMP, LIPID #### [address] [address] #### B12 #### [place] [address] MGon 10-04-2024 Magnesium [Mass/Vol] 1.6 mg/dL Low 1.8-2.4 [facility] Comment on above: Performed By: #### A DIFF, MG, GFR, ANEU, CBC, PBNP, CMP, LIPID #### [address] [address] #### B12 #### [place] [address] PBNPon 10-04-2024 Natriuretic peptide B (Bld) [Mass/Vol] 76 pg/mL Normal 0-125 [facility] Comment on above: Result Comment: NT-p roBNP results of less than 300 pg/mL effectively rules out acute congestive heart failure with 99% negative predictive value. Performed By: #### A DIFF, MG, GFR, ANEU, CBC, PBNP, CMP, LIPID #### [address] [address] #### B12 #### [place] [address] RFon 08-14-2023 Rheumatoid Factor <6.0 Normal <=5.9 [facility] ([place] Comment on above: Result Comment: RF I gM Antibody by Enzyme Immunoassay: Negative < or = 6 Positive > 6 A positive result indicates the presence of RF antibodies and suggests the possibility of rheumatoid arthritis. A negative result indicates no RF IgM antibody or levels below the negative cut-off of the assay. Results of this assay should be used in conjunction with clinical findings and other serological tests. These results were obtained with the [employer] QUANTA Lite RF IgM OSWALDO. RF IgM values obtained with different manufacturers' assay methods may not be used interchangeably. The magnitude of the reported IgM levels cannot be correlated to an endpoint titer. Performed By: #### M G, ESR, BMP, CRP, FE, GFR #### [address] [address] #### RF #### [address] [address] ANAIFSon 08-13-2023 Antinuclear Ab Screen Negative Normal Negative [facility] ([place] Comment on above: Result Comment: Anti -nuclear antibody test is used as an aid in diagnosis of systemic autoimmune diseases. Where positive and clinically warranted, follow-up using disease-specific testing is recommended. Low positive titers are not uncommon with advanced age, certain chronic infections, and malignancies among others. Test methodology: Indirect fluorescence immunoassay (IFA) using HEp-2 cells. Performed By: [facility] [address] [place] [address] Cook Jelly: Ky Kirkland III, M.D. CLIA#: [id number] Performed By: #### A NAIFS #### [address] [address] .GFRon 08-11-2023 GFR 89 ml/min/1.73sqm Normal [facility] ([place]) Comment on above: Result Comment: GFR Population mean for , Non- Americans Ages 20-29 = 116 mL/min/1.73 sq.m. Ages 30-39 = 107 mL/min/1.73 sq.m. Ages 40-49 = 99 mL/min/1.73 sq.m. Ages 50-59 = 93 mL/min/1.73 sq.m. Ages 60-69 = 85 mL/min/1.73 sq.m. Ages 70+ = 75 mL/min/1.73 sq.m. Chronic Kidney Disease: Less than 60 mL/min/1.73 square meters End Stage Renal Disease: Less than 15 mL/min/1.73 square meters Performed By: #### M G, ESR, BMP, CRP, FE, GFR #### [place] [id number] [place], [place] [address] #### RF #### [address] [address] GFR Non- 74 ml/min/1.73sqm Normal [facility] ([place]) Comment on above: Result Comment: GFR Population mean for , Non- Americans Ages 20-29 = 116 mL/min/1.73 sq.m. Ages 30-39 = 107 mL/min/1.73 sq.m. Ages 40-49 = 99 mL/min/1.73 sq.m. Ages 50-59 = 93 mL/min/1.73 sq.m. Ages 60-69 = 85 mL/min/1.73 sq.m. Ages 70+ = 75 mL/min/1.73 sq.m. Chronic Kidney Disease: Less than 60 mL/min/1.73 square meters End Stage Renal Disease: Less than 15 mL/min/1.73 square meters Performed By: #### M G, ESR, BMP, CRP, FE, GFR #### [address] [address] #### RF #### [address] [address] .Urinalysis Microscopic (AO) on 08-11-2023 UA Bacteria Trace Abnormal [facility] ([place] Comment on above: Performed By: #### A NAIFS #### [address] [address] UA RBC None Seen Normal None Seen [facility] ([place] Comment on above: Performed By: #### A NAIFS #### [address] [address] UA Squam Epithelial 0-5 Abnormal None Seen [facility] ([place] Comment on above: Performed By: #### A NAIFS #### [address] [address] UA WBC 0-5 Abnormal None Seen [facility] ([place] Comment on above: Performed By: #### A NAIFS #### [place] [id number] BMPon 08-11-2023 BUN/Creatinine Ratio 19 ratio Normal 7-27 [facility] ([place]) Comment on above: Performed By: #### M G, ESR, BMP, CRP, FE, GFR #### [place] [address] #### RF #### [place] [address] Calcium [Mass/Vol] 8.8 mg/dL Normal 8.4-10.2 [facility] ([place] Comment on above: Performed By: #### M G, ESR, BMP, CRP, FE, GFR #### [place] [id number] #### RF #### [place] [id number] Chloride [Moles/Vol] 98 mmol/L Normal 98-107 [facility] ([place] Comment on above: Performed By: #### M G, ESR, BMP, CRP, FE, GFR #### [place] [address] #### RF #### [place] [address] CO2 [Moles/Vol] 28 mmol/L Normal 23-31 [facility] ([place]) Comment on above: Performed By: #### M G, ESR, BMP, CRP, FE, GFR #### [place] [address] #### RF #### [place] [address] Creatinine [Mass/Vol] 0.79 mg/dL Normal 0.55-1.02 [facility] [facility] ([place]) Comment on above: Performed By: #### M G, ESR, BMP, CRP, FE, GFR #### [place] [address] #### RF #### [address] [address] Electrolyte Balance 12.0 mEq/L Normal 4.0-15.0 [facility] ([place]) Comment on above: Performed By: #### M G, ESR, BMP, CRP, FE, GFR #### [place] [address] #### RF #### [address] [address] Glucose [Mass/Vol] 102 mg/dL Normal 80-115 [facility] ([place]) Comment on above: Performed By: #### M G, ESR, BMP, CRP, FE, GFR #### [place] [address] #### RF #### [place] [address] Potassium [Moles/Vol] 4.4 mmol/L Normal 3.5-5.1 [facility] ([place] Comment on above: Performed By: #### M G, ESR, BMP, CRP, FE, GFR #### [place] [address] #### RF #### [place] [address] Sodium [Moles/Vol] 138 mmol/L Normal 136-145 [facility] ([place] Comment on above: Performed By: #### M G, ESR, BMP, CRP, FE, GFR #### [place] [address] #### RF #### [address] [address] Urea nitrogen [Mass/Vol] 15 mg/dL Normal 7-18 [facility] ([place] Comment on above: Performed By: #### M G, ESR, BMP, CRP, FE, GFR #### [place] [address] #### RF #### [place] [address] CRPon 08-11-2023 C-Reactive Protein 0.7 mg/dL High 0.0-0.3 [facility] ([place] Comment on above: Performed By: #### M G, ESR, BMP, CRP, FE, GFR #### [address] [address] #### RF #### [place] [id number] ESRon 08-11-2023 Erythrocyte Sed Rate 10 mm/hr Normal 0-30 [facility] ([place]) Comment on above: Performed By: #### M G, ESR, BMP, CRP, FE, GFR #### [address] [address] #### RF #### [place] [address] FEon 08-11-2023 Iron [Mass/Vol] 53 ug/dL Normal 50-170 [facility] ([place]) Comment on above: Performed By: #### M G, ESR, BMP, CRP, FE, GFR #### [address] [address] #### RF #### [place] [address] LABORATORYOrdered By: James Burton on 08-11-2023 Appearance (U) Slightly Cloudy *ABN* (08/11/23 3:30 PM) Invalid Interpretation Code AO Auto Urine SS Bacteria LM.HPF (Urine sed) [#/Area] Trace /HPF Invalid Interpretation Code AO Auto Urine SS Bilirubin Ql (U) Negative (08/11/23 3:30 PM) Invalid Interpretation Code AO Auto Urine SS Color (U) Light yellow Invalid Interpretation Code AO Auto Urine SS Glucose Test strip (U) [Mass/Vol] Negative Invalid Interpretation Code AO Auto Urine SS Hemoglobin Auto test strip (U) [Mass/Vol] Negative (08/11/23 3:30 PM) Invalid Interpretation Code AO Auto Urine SS Ketones Ql (U) Negative Invalid Interpretation Code AO Auto Urine SS UA Leuk Est Small *ABN* (08/11/23 3:30 PM) Invalid Interpretation Code AO Auto Urine SS UA Nitrite Negative (08/11/23 3:30 PM) Invalid Interpretation Code AO Auto Urine SS UA pH 6.0 (08/11/23 3:30 PM) Invalid Interpretation Code AO Auto Urine SS UA Protein Negative Invalid Interpretation Code AO Auto Urine SS UA RBC None Seen /HPF Invalid Interpretation Code AO Auto Urine SS UA Spec Grav 1.015 (08/11/23 3:30 PM) Invalid Interpretation Code AO Auto Urine SS UA Specimen Type Clean Catch (08/11/23 3:30 PM) Invalid Interpretation Code AO Auto Urine SS UA Squam Epithelial 0-5 /HPF Invalid Interpretation Code AO Auto Urine SS UA Urobilinogen 0.2 E.U./dL Invalid Interpretation Code AO Auto Urine SS WBC LM.HPF (Urine sed) [#/Area] 0-5 /HPF Invalid Interpretation Code AO Auto Urine SS ESR Photometric method (Bld) [Velocity] 10 mm/hr Invalid Interpretation Code 0 - 30 mm/hr AO Man Heme SS LABORATORYOrdered By: SYSTEM SYSTEM on 08-11-2023 Calcium [Mass/Vol] 8.8 mg/dL Invalid Interpretation Code 8.4 - 10.2 mg/dL AO ADM SS Chloride [Moles/Vol] 98 mmol/L Invalid Interpretation Code 98 - 107 mmol/L AO ADM SS CO2 [Moles/Vol] 28 mmol/L Invalid Interpretation Code 23 - 31 mmol/L AO ADM SS Creatinine [Mass/Vol] 0.79 mg/dL Invalid Interpretation Code 0.55 - 1.02 mg/dL AO ADM SS CRP [Mass/Vol] 0.7 mg/dL Invalid Interpretation Code 0.0 - 0.3 mg/dL AO ADM SS Electrolyte Balance 12.0 mEq/L Invalid Interpretation Code 4.0 - 15.0 mEq/L AO ADM SS GFR/1.73 sq M.predicted among blacks MDRD (S/P/Bld) [Vol rate/Area] 89 ml/min/1.73sqm Invalid Interpretation Code AO Chemistry S Comment on above: Interpretive Data: GFR Population mean for , Non- Americans Ages 20-29 = 116 mL/min/1.73 sq.m. Ages 30-39 = 107 mL/min/1.73 sq.m. Ages 40-49 = 99 mL/min/1.73 sq.m. Ages 50-59 = 93 mL/min/1.73 sq.m. Ages 60-69 = 85 mL/min/1.73 sq.m. Ages 70+ = 75 mL/min/1.73 sq.m. Chronic Kidney Disease: Less than 60 mL/min/1.73 square meters End Stage Renal Disease: Less than 15 mL/min/1.73 square meters GFR/1.73 sq M.predicted among non-blacks MDRD (S/P/Bld) [Vol rate/Area] 74 ml/min/1.73sqm Invalid Interpretation Code AO Chemistry S Comment on above: Interpretive Data: GFR Population mean for , Non- Americans Ages 20-29 = 116 mL/min/1.73 sq.m. Ages 30-39 = 107 mL/min/1.73 sq.m. Ages 40-49 = 99 mL/min/1.73 sq.m. Ages 50-59 = 93 mL/min/1.73 sq.m. Ages 60-69 = 85 mL/min/1.73 sq.m. Ages 70+ = 75 mL/min/1.73 sq.m. Chronic Kidney Disease: Less than 60 mL/min/1.73 square meters End Stage Renal Disease: Less than 15 mL/min/1.73 square meters Glucose [Mass/Vol] 102 mg/dL Invalid Interpretation Code 80 - 115 mg/dL AO ADM SS Iron [Mass/Vol] 53 ug/dL Invalid Interpretation Code 50 - 170 mcg/dL AO ADM SS Magnesium [Mass/Vol] 1.7 mg/dL Invalid Interpretation Code 1.8 - 2.4 mg/dL AO ADM SS Potassium [Moles/Vol] 4.4 mmol/L Invalid Interpretation Code 3.5 - 5.1 mmol/L AO ADM SS Sodium [Moles/Vol] 138 mmol/L Invalid Interpretation Code 136 - 145 mmol/L AO ADM SS Urea nitrogen [Mass/Vol] 15 mg/dL Invalid Interpretation Code 7 - 18 mg/dL AO ADM SS Urea nitrogen/Creatinine [Mass ratio] 19 ratio Invalid Interpretation Code 7 - 27 ratio AO ADM SS MGon 08-11-2023 Magnesium [Mass/Vol] 1.7 mg/dL Low 1.8-2.4 [facility] ([place]) Comment on above: Performed By: #### M G, ESR, BMP, CRP, FE, GFR #### [address] [address] #### RF #### [facility] [address] [place] [address] UAon 08-11-2023 Color (U) Light yellow Normal [facility] ([place]) Comment on above: Order Comment: MICRO SCOPY REGARDLESS OF RESULTS Performed By: #### U A, UAMICAO #### [address] [address] Glucose (U) [Mass/Vol] Negative Normal Negative [facility] ([place]) Comment on above: Order Comment: MICRO SCOPY REGARDLESS OF RESULTS Performed By: #### U A, UAMICAO #### [place] [id number] Ketones Ql (U) Negative Normal Negative [facility] ([place]) Comment on above: Order Comment: MICRO SCOPY REGARDLESS OF RESULTS Performed By: #### U A, UAMICAO #### [place] [address] UA Appear Slightly Cloudy Abnormal Clear [facility] ([place]) Comment on above: Order Comment: MICRO SCOPY REGARDLESS OF RESULTS Performed By: #### U A, UAMICAO #### [address] [address] UA Blood Negative Normal Negative [facility] ([place]) Comment on above: Order Comment: MICRO SCOPY REGARDLESS OF RESULTS Performed By: #### U A, UAMICAO #### [address] [address] UA Leuk Est Small Abnormal Negative [facility] ([place]) Comment on above: Order Comment: MICRO SCOPY REGARDLESS OF RESULTS Performed By: #### U A, UAMICAO #### [address] [address] UA Nitrite Negative Normal Negative [facility] ([place]) Comment on above: Order Comment: MICRO SCOPY REGARDLESS OF RESULTS Performed By: #### U A, UAMICAO #### [address] [address] UA pH 6.0 Normal 5.0 - 8.0 [facility] ([place]) Comment on above: Order Comment: MICRO SCOPY REGARDLESS OF RESULTS Performed By: #### U A UAMICAO #### [address] [address] UA Protein Negative Normal Negative [facility] ([place] Comment on above: Order Comment: MICRO SCOPY REGARDLESS OF RESULTS Performed By: #### U A UAMICAO #### [address] [address] UA Spec Grav 1.015 Normal 1.015-1.025 [facility] ([place] Comment on above: Order Comment: MICRO SCOPY REGARDLESS OF RESULTS Performed By: #### U A UAMICAO #### [place] [address] UA Specimen Type Clean Catch Normal [facility] ([place] Comment on above: Order Comment: MICRO SCOPY REGARDLESS OF RESULTS Performed By: #### U A UAMICAO #### [place] [address] UA Urobilinogen 0.2 E.U./dL Normal 0.2-1.0 [facility] ([place] Comment on above: Order Comment: MICRO SCOPY REGARDLESS OF RESULTS Performed By: #### U Natalie UAMICAO #### [place] [address] Urobilinogen (U) [Mass/Vol] Negative Normal Negative [facility] ([place] Comment on above: Order Comment: MICRO SCOPY REGARDLESS OF RESULTS Performed By: #### U Natalie UAMICAO #### [place] [address] MA MAMMOGRAM SCREENING BILAT ERAL W/TOMOon 06-27-2023 MA MAMMOGRAM SCREENING BILATERAL W/LINK ORIGINAL FROM: [address] [address] PROCEDURE FOR: ESTIVEN HERNANDEZ [address] [place] [id number] Home: PID#: [id number] Exam#: [id number] : 1960 Age: 62 TO: DAVE LE DO [address] [place], [place] [address] Fax: NO FAX EXAMINATION: SCREENING DIGITAL BILATERAL MAMMOGRAM WITH TOMOSYNTHESIS, 06/25/2023 3:18 pm TECHNIQUE: Screening mammography of the bilateral breasts was performed with tomosynthesis. 2D standard and 3D tomosynthesis combination imaging performed through both breasts in the MLO and CC projection. Computer aided detection was utilized in the interpretation of this exam. COMPARISON: 06/08/2021, 12/01/2019 HISTORY: Breast cancer screening FINDINGS: BREAST DENSITY: Scattered fibroglandular tissue There are no significant masses or calcifications. IMPRESSION: No mammographic evidence of malignancy. Continued screening with annual mammograms is recommended. BIRADS: MAMMOGRAM BI-RADS: 1: Negative RECALL: 1 year screening RECALL TYPE: mammo LETTER SENT: Normal BI-RADS 1 and 2 Interpreted by: Bentley Church MD Preliminary Report By: Bentley Church MD Electronically signed By Bentley Church MD Dictated Date: 06/27/2023 6:04:52 PM Prelim Date: 06/27/2023 6:11:25 PM Sign Date: 06/27/2023 6:11:25 PM Ordering Provider: DAVE LE Tacking Stitch Remover: CATINA HUFFMAN RT (R) (M) (CT) letter sent: Normal BI-RADS 1 and 2 Mammogram BI-RADS: 1 Negative [facility] ([place]) 36on 06-06-2023 36 S: Patient spoke steffi donis [facility] nurse regarding Medications for lichen sclerosis B: Onset of symptoms/concern 2 weeks ago A: Patient is having a flare of her lichen sclerosus and using Betamethasone 0.05% twice a day that was written by her primary Dr Le at [facility]. She is taking ibuprofen, but requesting if OBGYN can call something different in for her. R: Patient advised refer back to her Primary until new patient visit with Dr Norman 07/11/23 Patient understands care advice. No further needs at this time. Patient instructed to call back with new or worsening symptoms. Reason for Disposition Caller has NON-URGENT medicine question about med that PCP or specialist prescribed and triager unable to answer question Protocols used: Medication [facility] Patient scheduled [facility] appointment [facility] No Panel Informationon 05-30 Culture Urine 50,000 - 100,000 cfu /ml Mixed growth consistent with normal urogenital bossman. [facility] Work Phone: LABORATORYOrdered By: SYSTEM SYSTEM on 05-09-2023 Basophil, Absolute 0.0 103/mcL Invalid Interpretation Code 0.0 - 0.2 10^3/mcL AO Workflow SS Basophils/100 WBC (Bld) 0.7 % Invalid Interpretation Code 0.0 - 2.5 % AO Workflow SS Calcium [Mass/Vol] 8.7 mg/dL Invalid Interpretation Code 8.4 - 10.2 mg/dL AO ADM SS Chloride [Moles/Vol] 104 mmol/L Invalid Interpretation Code 98 - 107 mmol/L AO ADM SS CO2 [Moles/Vol] 31 mmol/L Invalid Interpretation Code 23 - 31 mmol/L AO ADM SS Creatinine [Mass/Vol] 0.79 mg/dL Invalid Interpretation Code 0.55 - 1.02 mg/dL AO ADM SS Electrolyte Balance 6.0 mEq/L Invalid Interpretation Code 4.0 - 15.0 mEq/L AO ADM SS Eosinophil, Absolute 0.1 103/mcL Invalid Interpretation Code 0.0 - 0.4 10^3/mcL AO Workflow SS Eosinophils/100 WBC (Bld) 2.1 % Invalid Interpretation Code 0.0 - 7.0 % AO Workflow SS Erythrocyte distribution width (RBC) [Ratio] 12.7 % Invalid Interpretation Code 11.5 - 14.5 % AO Workflow SS GFR/1.73 sq M.predicted among blacks MDRD (S/P/Bld) [Vol rate/Area] 90 ml/min/1.73sqm Invalid Interpretation Code AO Chemistry S Comment on above: Interpretive Data: GFR Population mean for , Non- Americans Ages 20-29 = 116 mL/min/1.73 sq.m. Ages 30-39 = 107 mL/min/1.73 sq.m. Ages 40-49 = 99 mL/min/1.73 sq.m. Ages 50-59 = 93 mL/min/1.73 sq.m. Ages 60-69 = 85 mL/min/1.73 sq.m. Ages 70+ = 75 mL/min/1.73 sq.m. Chronic Kidney Disease: Less than 60 mL/min/1.73 square meters End Stage Renal Disease: Less than 15 mL/min/1.73 square meters GFR/1.73 sq M.predicted among non-blacks MDRD (S/P/Bld) [Vol rate/Area] 74 ml/min/1.73sqm Invalid Interpretation Code AO Chemistry S Comment on above: Interpretive Data: GFR Population mean for , Non- Americans Ages 20-29 = 116 mL/min/1.73 sq.m. Ages 30-39 = 107 mL/min/1.73 sq.m. Ages 40-49 = 99 mL/min/1.73 sq.m. Ages 50-59 = 93 mL/min/1.73 sq.m. Ages 60-69 = 85 mL/min/1.73 sq.m. Ages 70+ = 75 mL/min/1.73 sq.m. Chronic Kidney Disease: Less than 60 mL/min/1.73 square meters End Stage Renal Disease: Less than 15 mL/min/1.73 square meters Glucose [Mass/Vol] 103 mg/dL Invalid Interpretation Code 80 - 115 mg/dL AO ADM SS Hematocrit (Bld) [Volume fraction] 38.8 % Invalid Interpretation Code 37.0 - 47.0 % AO Workflow SS Hemoglobin (Bld) [Mass/Vol] 13.3 G/dL Invalid Interpretation Code 12.0 - 16.0 G/dL AO Workflow SS Lymphocyte, Absolute 3.0 103/mcL Invalid Interpretation Code 0.8 - 3.9 10^3/mcL AO Workflow SS Lymphocytes/100 WBC (Bld) 46.0 % Invalid Interpretation Code 10.0 - 50.0 % AO Workflow SS MCH (RBC) [Entitic mass] 33.6 pg Invalid Interpretation Code 27.0 - 31.2 pg AO Workflow SS MCHC 34.3 G/dL Invalid Interpretation Code 33.0 - 37.0 G/dL AO Workflow SS MCV (RBC) [Entitic vol] 98.0 fL Invalid Interpretation Code 80.0 - 94.0 fL AO Workflow SS Monocyte, Absolute 0.4 103/mcL Invalid Interpretation Code 0.2 - 1.0 10^3/mcL AO Workflow SS Monocytes/100 WBC (Bld) 5.8 % Invalid Interpretation Code 1.7 - 13.0 % AO Workflow SS Neutrophil, Absolute 3.0 103/mcL Invalid Interpretation Code 2.9 - 6.2 10^3/mcL AO Workflow SS Neutrophils/100 WBC (Bld) 45.4 % Invalid Interpretation Code 37.0 - 80.0 % AO Workflow SS Platelet mean volume (Bld) [Entitic vol] 8.6 fL Invalid Interpretation Code 7.4 - 10.4 fL AO Workflow SS Platelets (Bld) [#/Vol] 292 103/mcL Invalid Interpretation Code 130 - 400 10^3/mcL AO Workflow SS Potassium [Moles/Vol] 4.2 mmol/L Invalid Interpretation Code 3.5 - 5.1 mmol/L AO ADM SS RBC (Bld) [#/Vol] 3.97 106/mcL Invalid Interpretation Code 4.20 - 5.40 10^6/mcL AO Workflow SS Sodium [Moles/Vol] 141 mmol/L Invalid Interpretation Code 136 - 145 mmol/L AO ADM SS Urea nitrogen [Mass/Vol] 13 mg/dL Invalid Interpretation Code 7 - 18 mg/dL AO ADM SS Urea nitrogen/Creatinine [Mass ratio] 16 ratio Invalid Interpretation Code 7 - 27 ratio AO ADM SS WBC (Bld) [#/Vol] 6.6 103/mcL Invalid Interpretation Code 4.6 - 10.8 10^3/mcL AO Workflow SS LABORATORYOrdered By: Lavell Helton on 05-09-2023 Cholesterol [Mass/Vol] 238 mg/dL Invalid Interpretation Code 0 - 200 mg/dL AO ADM SS Comment on above: Interpretive Data: C holesterol Reference Interval: Less than 200 Desirable 200-239 Borderline high risk 240 and above High risk Cholesterol in HDL [Mass/Vol] 62 mg/dL Invalid Interpretation Code 40 - 60 mg/dL AO ADM SS Cholesterol in LDL [Mass/Vol] 143 mg/dL Invalid Interpretation Code 0 - 130 mg/dL AO ADM SS Triglyceride [Mass/Vol] 166 mg/dL Invalid Interpretation Code 0 - 150 mg/dL AO ADM SS Comment on above: Interpretive Data: T riglyceride Reference Interval: Less than 150 Normal 150-199 Borderline high risk 200-499 High risk 500 or higher Very high risk LABORATORYOrdered By: Virginia Nathan on 05-09-2023 HCV Ab IA Ql Non-Reactive (05/09/23 7:12 AM) Invalid Interpretation Code AH ADM SS HCV Ab IA Ql Nonreactive: Samples with a value < 0.80 are considered nonreactive (negative) for antibodies to HCV.A negative test result does not exclude the possibility of exposure to or infection with HCV. HCV antibodies may be undetectable in some stages of the infection and in some clinical conditions. Invalid Interpretation Code Chemistry S LABORATORYOrdered By: Bel Beard on 04-30-2023 Appearance (U) Slightly Cloudy *ABN* (04/30/23 2:08 PM) Invalid Interpretation Code Clear AO Auto Urine SS Bilirubin Ql (U) Negative (04/30/23 2:08 PM) Invalid Interpretation Code Negative AO Auto Urine SS Calcium oxalate crystals LM.HPF (Urine sed) [#/Area] 3 /[HPF] Invalid Interpretation Code AO Auto Urine SS Color (U) Yellow (04/30/23 2:08 PM) Invalid Interpretation Code AO Auto Urine SS Glucose Test strip (U) [Mass/Vol] Negative Invalid Interpretation Code Negativemg/ dL AO Auto Urine SS Hemoglobin Auto test strip (U) [Mass/Vol] Negative (04/30/23 2:08 PM) Invalid Interpretation Code Negative AO Auto Urine SS Ketones Ql (U) Negative Invalid Interpretation Code Negativemg/ dL AO Auto Urine SS UA Leuk Est Negative (04/30/23 2:08 PM) Invalid Interpretation Code Negative AO Auto Urine SS UA Nitrite Negative (04/30/23 2:08 PM) Invalid Interpretation Code Negative AO Auto Urine SS UA pH 5.5 (04/30/23 2:08 PM) Invalid Interpretation Code 5.0 - 8.0 AO Auto Urine SS UA Protein Negative Invalid Interpretation Code Negativemg/ dL AO Auto Urine SS UA RBC 0-5 /HPF Invalid Interpretation Code None Seen/HPF AO Auto Urine SS UA Spec Grav >=1.030 *ABN* (04/30/23 2:08 PM) Invalid Interpretation Code 1.015-1.025 AO Auto Urine SS UA Specimen Type Clean Catch (04/30/23 2:08 PM) Invalid Interpretation Code AO Auto Urine SS UA Squam Epithelial 5-10 /HPF Invalid Interpretation Code None Seen/HPF AO Auto Urine SS UA Urobilinogen 0.2 E.U./dL Invalid Interpretation Code 0.2-1.0E.U. /dL AO Auto Urine SS WBC LM.HPF (Urine sed) [#/Area] 0-5 /HPF Invalid Interpretation Code None Seen/HPF AO Auto Urine SS Vital Signs Date Time Vital Sign Value Performing Clinician Facility 03-10-2025 15:31-0400 Body height 165.1 cm Grisel Shawman [facility] Work Phone: [facility] 03-10-2025 15:31-0400 Body mass index (BMI) [Ratio] 41.1 kg/m2 Grisellilli Shawman [facility] Work Phone: [facility] 03-10-2025 15:31-0400 Body weight 112.2 kg Grisel Shawman [facility] Work Phone: [facility] 03-10-2025 15:31-0400 Diastolic blood pressure 83 mm[Hg] Grisellilli Shawman [facility] Work Phone: [facility] 03-10-2025 15:31-0400 Systolic blood pressure 142 mm[Hg] Grisellilli Shawman [facility] Work Phone: [facility] 01-27-2025 14:59-0400 Body height 165.1 cm Grisel Shawman [facility] Work Phone: [facility] 01-27-2025 14:59-0400 Body mass index (BMI) [Ratio] 41.2 kg/m2 Grisel Barkman [facility] Work Phone: [facility] 01-27-2025 14:59-0400 Body weight 112.49 kg Grisellilli Shawman [facility] Work Phone: [facility] 01-27-2025 14:59-0400 Diastolic blood pressure 78 mm[Hg] Grisel Barkman [facility] Work Phone: [facility] 01-27-2025 14:59-0400 Systolic blood pressure 124 mm[Hg] Grisel Barkman [facility] Work Phone: [facility] 07-25-2023 09:09-0400 Diastolic Blood Pressure Non-Invasive [address] KIT CELIS MD [facility] 10-13-2023 09:09-0400 Heart rate 54 /min DR KIT CELIS MD [facility] 07-25-2023 09:09-0400 Respiratory rate 14 /min DR KIT CELIS MD [facility] 07-25-2023 09:09-0400 Systolic Blood Pressure Non-Invasive [address] KIT CELIS MD [facility] 07-25-2023 09:01-0400 Diastolic Blood Pressure Non-Invasive [address] KIT CELIS MD [facility] 07-25-2023 09:01-0400 Heart rate 57 /min DR KIT CELIS MD [facility] 07-25-2023 09:01-0400 Respiratory rate 14 /min DR KIT CELIS MD [facility] 07-25-2023 09:01-0400 Systolic Blood Pressure Non-Invasive [address] KIT CELIS MD [facility] 07-25-2023 08:55-0400 Diastolic Blood Pressure Non-Invasive [address] KIT CELIS MD [facility] 07-25-2023 08:55-0400 Heart rate 63 /min DR KIT CELIS MD [facility] 07-25-2023 08:55-0400 Respiratory rate 18 /min DR KIT CELIS MD [facility] 07-25-2023 08:55-0400 Systolic Blood Pressure Non-Invasive [address] KIT CELIS MD [facility] 07-25-2023 08:50-0400 Body temperature 97.88 [degF] DR KIT CELIS MD [facility] 07-25-2023 08:45-0400 Respiratory Rate - Anes 15 br/min DR KIT CELIS MD [facility] 07-25-2023 08:40-0400 Respiratory Rate - Anes 16 br/min DR KIT CELIS MD [facility] 07-25-2023 08:35-0400 Respiratory Rate - Anes 16 br/min DR KIT CELIS MD [facility] 07-25-2023 07:41-0400 Body height 165.[address] KIT CELIS MD [facility] 07-25-2023 07:41-0400 Body temperature 97.52 [degF] DR KIT CELIS MD [facility] 07-25-2023 07:41-0400 Body weight 106.[address] KIT CELIS MD [facility] 07-25-2023 07:41-0400 Heart rate 71 /min DR KIT CELIS MD [facility] 07-25-2023 07:33-0400 Body height 165.[address] KIT CELIS MD [facility] Encounters Encounter Date Encounter Type Care Provider Facility Start: 03-10-2025 End: 03-10-2025 Patient encounter procedure Grisel MORALESC -[facility] Work Phone: Start: 03-10-2025 End: 03-10-2025 ambulatory Grisel MORALESC Work Phone: [facility] Work Phone: Start: 03-10-2025 End: 03-10-2025 ambulatory Grisel Justice Facility:[facility] Start: 01-27-2025 End: 01-27-2025 ambulatory Grisel Justice [facility] Work Phone: [facility] Work Phone: Start: 01-27-2025 End: 01-27-2025 Patient encounter procedure Grisel MORALESC -Laboratory, Specimen Work Phone: Start: 01-27-2025 End: 01-27-2025 Patient encounter procedure Grisel Justice [facility] Work Phone: Start: 01-27-2025 End: 01-27-2025 ambulatory Grisel Justice Facility:[facility] Start: 01-27-2025 End: 01-27-2025 ambulatory Grisel Justice Facility:[facility] Start: 10-20-2024 End: 10-20-[address] DAVE LE DO Facility[facility] Start: 10-20-2024 End: 10-20-[address] DAVE LE DO [facility] Start: 10-14-2024 End: 10-14-[address] DAVE LE DO [facility] Start: 10-14-2024 End: 10-14-[address] DAVE LE DO [facility] Start: 10-04-2024 End: 10-04-[address] DAVE LE DO [facility] Start: 10-04-2024 End: 10-04-[address] DAVE LE DO [facility] Start: 05-07-2024 End: 05-11-2024 ambulatory ARELI MONTGOMERY PA-C Facility:[facility] Start: 08-11-2023 End: 08-11-[address] DAVE LE DO Facility:[facility] Start: 08-11-2023 End: 08-11-[address] DAVE LE DO [facility] Start: 07-25-2023 End: 07-25-[address] KIT CELIS MD Facility:[facility] Start: 07-25-2023 End: 07-25-[address] KIT CELIS MD [facility] Start: 06-25-2023 End: 06-25-[address] DAVE LE DO Facility:[facility] Start: 06-25-2023 End: 06-25-[address] DAVE LE DO [facility] Start: 06-06-2023 ambulatory Miri Crawford RN [facility] Start: 06-06-2023 Patient encounter procedure Miri Crawford RN [facility] Start: 05-30-2023 End: 06-03-2023 ambulatory [facility] [employer] [facility] Facility:B Start: 05-30-2023 End: 06-03-2023 Outreach Lab [facility] Start: 05-09-2023 End: 05-13-[address] DAVE LE DO [facility] Start: 04-30-2023 End: 05-04-[address] DAVE LE DO [facility] Procedures Date Procedure Procedure Detail Performing Clinician Start: 01-27-2025 Gram stain microscopy Joe Justice TIMBER KILLER-C Work Phone: Start: 01-27-2025 End: 01-27-2025 Source specific culture Grisel Jacobo P-C Work Phone: Start: 10-20-[address] DAVE ANDREW DO Comment on above: Vaginal, with bilate ral salpingo-oophorectomy and lysis of adhesions Start: 10-13-2011 Loop electrosurgical excision procedure DR DAVE LE DO Start: 10-13-[address] DAVE LE DO delivery - delivered (finding) DR DAVE LE DO Comment on above: 3 C-sections Cholecystectomy DR DAVE Hall DO Comment on above: open Repair of shoulder DR DAVE RODRÍGUEZ DO Comment on above: right rotator cuff r epair Plan of Treatment Date Care Activity Detail Author Start: 04-30-2033 DTaP/Tdap/Td Vaccine s (2 - Td or Tdap) DTaP/Tdap/Td Vaccines (2 - Td or Tdap) [facility] Start: 07-11-2023 End: 07-11-2023 Patient encounter procedure 07/11/2023 2:00 PM EDT Office Visit [facility] [address] [place] [id number] Arabella Norman MD [address] [place], [place] [address] [facility] Start: 06-13-2023 Influenza vaccination Influenza Vacc ine (#1) [facility] Start: 2011 Zoster Vaccines (1 of 2) Zoste r Vaccines (1 of 2) [facility] Start: 2001 Screening for malign ant neoplasm of breast Mammogram [facility] Start: 1991 Screening for malign ant neoplasm of cervix [facility] Start: 1982 Screening for malign ant neoplasm of cervix Pap Smear [facility] Start: 1979 Hepatitis C screening Hepatitis C Sc reening [facility] Start: 1973 Depression Screening Depression Scre ening [facility] Start: 1962 MMR Vaccines (1 of 1 - Standard series) MMR Vaccines (1 of 1 - Standard series) [facility] Start: 1961 HIV screening HIV Screening [facility] Start: 1961 Screening for malign ant neoplasm of colon [facility] Herpes simplex virus identified in Unspecified specimen by Organism specific culture [facility] Immunizations Immunization Date Immunization Notes Care Provider Yuniel arora 01-28-[address] DAVE LE DO [facility] 04-30-2023 SARSCoV2 mRNA(cqsvjkotoar68n+)bi darlin vac; Translations: [Pfizer-BioNTech COVID-19 (12y+) Bivalent Booster Vaccine PF] DR DAVE LE DO [facility] 04-30-2023 tetanus toxoid, redu damian diphtheria toxoid, and acellular pertussis vaccine, adsorbed; Translations: [Boostrix (Tdap)] DR DAVE LE DO [facility] 04-30-2023 COVID-19, mRNA, LNP- S, bivalent booster, PF, 30 mcg/0.3 mL dose; Translations: [Pfizer-BioNTech COVID-19 (12y+) Bivalent Booster Vaccine PF] DR DAVE LE DO [facility] 08-07-2022 influenza virus vaccine, unspecified formulation DR DAVE LE DO [facility] 10-18-2021 COVID-19, mRNA, LNP- S, PF, 30 mcg/0.3 mL dose; Translations: [Pfizer-BioNTech COVID-19 Vaccine] DR DAVE LE DO [facility] 12-29-2020 SARS-CoV-2 mRNA (tozinameran) vaccine DR DAVE LE DO [facility] 12-08-2020 SARS-CoV-2 mRNA (tozinameran) vaccine DR DAVE LE DO [facility] Comment on above: Result Comment: 2020: TPV23 09-04-2020 influenza virus vaccine, unspecified formulation DR DAVE LE DO [facility] 11-26-2019 influenza, injectabl e, quadrivalent, preservative free; Translations: [Fluarix PF Quadrivalent ] DR DAVE LE DO [facility] 08-04-2018 influenza virus vaccine, unspecified formulation DR DAVE LE DO [facility] 08-27-2017 influenza virus vaccine, unspecified formulation DR DAVE LE DO [facility] Payers Date Payer Category Payer Self-pay 2024 Unknown [id number] 2023 Unknown [id number] 2014 Unknown MAR[employer] A [id number] 1961 Unknown [id number] 2.16.8 [id number] 1961 Unknown [id number] 2.16.8 [id number] 1961 Unknown [id number] 2.16.8 [id number] 1961 Unknown [id number] 2.16.8 [id number] 1961 Unknown [id number] 2.16.8 [id number] 1961 Unknown [id number] 2.16.8 [id number] 1961 Unknown [id number] 2.16.8 [id number] 1961 Unknown [id number] 2.16.8 [id number] Unknown [id number] 2.16.8 [id number] Unknown [id number] 2.16.8 [id number] Unknown [id number] 2.16.8 [id number] Unknown [id number] 2.16.8 [id number] Social History Date Type Detail Facility Start: 11-26-2019 End: 01-27-2025 Tobacco smoking status Never smoked tobacco (finding) [facility] Comment on above: no smoke exposure Start: 1960 Sex Assigned At Female A [facility] Tobacco smoking stat [facility] Tobacco smoking consumption unknown [facility] Start: 1960 Sex Assigned At Not on file [facility] Gender identity Not on file [facility] Sexual Orientation [facility] Start: 04-07-2019 End: 02-02-2025 Sex Female (finding) [facility] Functional Status Date Assessment Result Facility 07-25-2023 Functional Status Awake [facility] 07-25-2023 Functional Status Maintained [facility] Mental Status Date Assessment Result Facility 07-25-2023 Mental Status Oriented x 4 [facility] 07-25-2023 Mental Status [facility] Clinical Notes 06-01-2023 to 01-27-2025 Note Date & Type Note Facility 01-27-2025 Evaluation note Diagnosis Onset Date Resolution Lichen sclerosus acute January 272024 2:57pm Vaginal discharge acute January 112024 2:57pm [facility] Work Phone: 1(643) 776-832804-17-2025 Evaluation note* Diagnosis Onset Date Resolution Status Admit Date Lichen sclerosus acute January 272024 2:57pm Vaginal discharge acute January 112024 2:57pm Lichen sclerosus acute February 3:25pm Vaginal lesion acute March 10, 2025 3:25pm [facility] Work Phone: 1(642) 778-637801-02-2025 Note* Exam Date Time Procedure Performing Provider Status 10/14/24 3:57 PM Echocardiogram, Adult - CV HARISH ADAMS MD; Auth (Verified) [facility]12-23-2024 Note* Exam Date Time Procedure Performing Provider Status 10/04/24 3:05 PM VL Venous US/Doppler Both Legs(for DVT) RAKESH CAM MD; Auth (Verified) [facility]07-27-2024 Note. MICRO - Microbiology PROCEDURE: Urine Culture [*1] SOURCE: Urine, Clean Catch BODY SITE: COLLECTED DATE/TIME: 05/07/2024 16:26 EDT RECEIVED DATE/TIME: 05/07/2024 18:53 EDT START DATE/TIME: 05/07/2024 18:53 EDT FREE TEXT SOURCE: FINAL REPORTS Final Report [] Verified Date/Time/Personnel: 05/08/2024 14:07 EDT 10,000 - 50,000 cfu/ml Multiple bacterial morphotypes present. Probable Contamination. Suggest recollection if clinically indicated. Performing Locations *1: This test was performed at: [address], [facility] , [facility] ([place])08-13-2023 Note. MICRO - Microbiology PROCEDURE: Urine Culture [*1] SOURCE: Urine BODY SITE: COLLECTED DATE/TIME: 08/11/2023 16:51 EDT RECEIVED DATE/TIME: 08/11/2023 22:21 EDT START DATE/TIME: 08/11/2023 22:21 EDT FREE TEXT SOURCE: FINAL REPORTS Final Report [] Verified Date/Time/Personnel: 08/13/2023 07:45 EDT >100,000 cfu/ml Multiple bacterial morphotypes present. Probable Contamination. Suggest recollection if clinically indicated. PRELIMINARY REPORTS Preliminary Report [] Verified Date/Time/Personnel: 08/12/2023 09:24 EDT Culture results pending. Performing Locations *1: This test was performed at: [facility], [address] [place] [address], [id number] , [facility] ([place]07-25-2023 Evaluation + Plan noteExtracted from: Title:Clinical Document Author:KIT CELIS Date:07/25/23 [place] ADMISSION HISTORY AN D PHYSICIAL CHIEF COMPLAINT: HISTORY OF PRESENT ILLNESS: REVIEW OF SYSTEMS: ACTIVE PROBLEMS: (24) Acute depression (5505635677) Back pain ([id number]) BPPV (benign paroxysmal positional vertigo) (717487229) Constipation in female (08627089) Dizziness (8910079974) Hematuria (738549384) History of cold sores (551206749) Hot flashes (283575033) Hyperglycemia (789502580) Hyperlipidemia, mixed (624394804) Left ear pain (55006055) LGSIL on Pap smear of cervix (1939759034) Lichen sclerosus (8696184992) Lumbar disc disease with radiculopathy (075855729) Lymphadenitis, acute (662915432) Positive depression screening (659111524) Post-menopausal bleeding (923307057) Prediabetes (9509982127) Screening for hyperlipidemia (654527588) Shingles (1113656) Skin lesion (948914533) Tonsillar exudate (199990468) Vaginal dryness (87569567) 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 Weights display the last 5 within 7 days. Initial Wt: 07/25 106.8 kg 235 lb Current Wt: 07/25 106.8 kg 235 lb GENERAL: HEENT: CARDIOVASCULAR: RESPIRATORY: ABDOMEN: EXREMETIES: NEUROLOGICAL: PSYCHIATRIC: LABS: No 36hr Lab Data DIAGNOSTICS: IMPRESSION: PLAN: History and Physical Update I have examined the patient; reviewed the H&P and there are no changes to the H&P unless noted below. Future Appointments Appointment Date:08/07/2023 04:30:00 PM Scheduled Provider:DAVE LE DO Location:[facility] Appointment Type:PC OV Future Scheduled Tests Laboratory* Urinalysis 06/20/23 [facility] 10-13-2023 Hospital Discharge instructions Patient Education 07/25/2023 08:59:42 Nausea and Vomiting, Adult Nausea and Vomiting, Adult Nausea is the feeling that you have an upset stomach or that you are about to vomit. Vomiting is when stomach contents are thrown up and out of the mouth as a result of nausea. Vomiting can make you feel weak and cause you to become dehydrated. Dehydration can make you feel tired and thirsty, cause you to have a dry mouth, and decrease how often you urinate. Older adults and people with other diseases or a weak disease-fighting system (immune system) are at higher risk for dehydration. It is important to treat your nausea and vomiting as told by your health care provider. Follow these instructions at home: Watch your symptoms for any changes. Tell your health care provider about them. Follow these instructions to care for yourself at home. Eating and drinking Take an oral rehydration solution (ORS). This is a drink that is sold at pharmacies and retail stores. Drink clear fluids slowly and in small amounts as you are able. Clear fluids include water, ice chips, low-calorie sports drinks, and fruit juice that has water added (diluted fruit juice). Eat bland, eooh-ez-cdmqfg foods in small amounts as you are able. These foods include bananas, applesauce, rice, lean meats, toast, and crackers. Avoid fluids that contain a lot of sugar or caffeine, such as energy drinks, sports drinks, and soda. Avoid alcohol. Avoid spicy or fatty foods. General instructions Take jqnv-dgo-yyftrqj and prescription medicines only as told by your health care provider. Drink enough fluid to keep your urine pale yellow. Wash your hands often using soap and water. If soap and water are not available, use hand treasury assistant. Make sure that all people in your household wash their hands well and often. Rest at home while you recover. Watch your condition for any changes. Breathe slowly and deeply when you feel nauseated. Keep all follow-up visits as told by your health care provider. This is important. Contact a health care provider if: Your symptoms get worse. You have new symptoms. You have a fever. You cannot drink fluids without vomiting. Your nausea does not go away after 2 days. You feel light-headed or dizzy. You have a headache. You have muscle cramps. You have a rash. You have pain while urinating. Get help right away if: You have pain in your chest, neck, arm, or jaw. You feel extremely weak or you faint. You have persistent vomiting. You have vomit that is bright red or looks like black coffee grounds. You have bloody or black stools or stools that look like tar. You have a severe headache, a stiff neck, or both. You have severe pain, cramping, or bloating in your abdomen. You have difficulty breathing, or you are breathing very quickly. Your heart is beating very quickly. Your skin feels cold and clammy. You feel confused. You have signs of dehydration, such as: ?Dark urine, very little urine, or no urine. ?Cracked lips. ?Dry mouth. ?Sunken eyes. ?Sleepiness. ?Weakness. These symptoms may represent a serious problem that is an emergency. Do not wait to see if the symptoms will go away. Get medical help right away. Call your local emergency services (911 in the [place] Do not drive yourself to the hospital. Summary Nausea is the feeling that you have an upset stomach or that you are about to vomit. As nausea getsworse, it can lead to vomiting. Vomiting can make you feel weak and cause you to become dehydrated. Follow instructions from your health care provider about eating and drinking to prevent dehydration. Take emwq-ibe-ttfzzpb and prescription medicines only as told by your health care provider. Contact your health care provider if your symptoms get worse, or you have new symptoms. Keep all follow-up visits as told by your health care provider. This is important. This information is not intended to replace advice given to you by your health care provider. Make sure you discuss any questions you have with your health care provider. Document Released: 09/29/2006 Document Revised: 01/21/2020 Document Reviewed: 03/09/2019 PAK Patient Education 2020 [email or web address]. 07/25/2023 08:59:41 Monitored Anesthesia Care, Care After Monitored Anesthesia Care, Care After These instructions provide you with information about caring for yourself after your procedure. Your health care provider may also give you more specific instructions. Your treatment has been plannedaccording to current medical practices, but problems sometimes occur. Call your health care provider if you have any problems or questions after your procedure. What can I expect after the procedure? After your procedure, you may: Feel sleepy for several hours. Feel clumsy and have poor balance for several hours. Feel forgetful about what happened after the procedure. Have poor judgment for several hours. Feel nauseous or vomit. Have a sore throat if you had a breathing tube during the procedure. Follow these instructions at home: For at least 24 hours after the procedure: Have a responsible adult stay with you. It is important to have someone help care for you until youare awake and alert. Rest as needed. Do not: ?Participate in activities in which you could fall or become injured. ?Drive. ?Use heavy machinery. ?Drink alcohol. ?Take sleeping pills or medicines that cause drowsiness. ?Make important decisions or sign legal documents. ?Take care of children on your own. Eating and drinking Follow the diet that is recommended by your health care provider. If you vomit, drink water, juice, or soup when you can drink without vomiting. Make sure you have little or no nausea before eating solid foods. General instructions Take xgoj-kig-jfmuznf and prescription medicines only as told by your health care provider. If you have sleep apnea, surgery and certain medicines can increase your risk for breathing problems. Follow instructions from your health care provider about wearing your sleep device: ?Anytime you are sleeping, including during daytime naps. ?While taking prescription pain medicines, sleeping medicines, or medicines that make you drowsy. If you smoke, do not smoke without supervision. Keep all follow-up visits as told by your health care provider. This is important. Contact a health care provider if: You keep feeling nauseous or you keep vomiting. You feel light-headed. You develop a rash. You have a fever. Get help right away if: You have trouble breathing. Summary For several hours after your procedure, you may feel sleepy and have poor judgment. Have a responsible adult stay with you for at least 24 hours or until you are awake and alert. This information is not intended to replace advice given to you by your health care provider. Make sure you discuss any questions you have with your health care provider. Document Released: 01/19/2017 Document Revised: 12/28/2018 Document Reviewed: 01/19/2017 PAK Patient Education 2020 [email or web address]. 07/25/2023 08:59:39 Colonoscopy, Adult, Care After Colonoscopy, Adult, Care After This sheet gives you information about how to care for yourself after your procedure. Your health care provider may also give you more specific instructions. If you have problems or questions, contact your health care provider. What can I expect after the procedure? After the procedure, it is common to have: A small amount of blood in your stool for 24 hours after the procedure. Some gas. Mild abdominal cramping or bloating. Follow these instructions at home: General instructions For the first 24 hours after the procedure: ?Do not drive or use machinery. ?Do not sign important documents. ?Do not drink alcohol. ?Do your regular daily activities at a slower pace than normal. ?Eat soft, tfpx-xt-ajqwzx foods. Take qsmo-qza-wlkgrlm or prescription medicines only as told by your health care provider. Relieving cramping and bloating Try walking around when you have cramps or feel bloated. Apply heat to your abdomen as told by your health care provider. Use a heat source that your healthcare provider recommends, such as a moist heat pack or a heating pad. ?Place a towel between your skin and the heat source. ?Leave the heat on for 20 30 minutes. ?Remove the heat if your skin turns bright red. This is especially important if you are unable to feel pain, heat, or cold. You may have a greater risk of getting burned. Eating and drinking Drink enough fluid to keep your urine pale yellow. Resume your normal diet as instructed by your health care provider. Avoid heavy or fried foods thatare hard to digest. Avoid drinking alcohol for as long as instructed by your health care provider. Contact a health care provider if: You have blood in your stool 2 3 days after the procedure. Get help right away if: You have more than a small spotting of blood in your stool. You pass large blood clots in your stool. Your abdomen is swollen. You have nausea or vomiting. You have a fever. You have increasing abdominal pain that is not relieved with medicine. Summary After the procedure, it is common to have a small amount of blood in your stool. You may also have mild abdominal cramping and bloating. For the first 24 hours after the procedure, do not drive or use machinery, sign important documents, or drink alcohol. Contact your health care provider if you have a lot of blood in your stool, nausea or vomiting, a fever, or increased abdominal pain. This information is not intended to replace advice given to you by your health care provider. Make sure you discuss any questions you have with your health care provider. Document Released: 05/13/2005 Document Revised: 07/22/2018 Document Reviewed: 12/10/2016 PAK Patient Education 2020 [email or web address]. Follow Up Care 07/11/2023 11:18:09 With:KIT CELIS MD Address: [address] [place] [phone] When:Within 10 Year(s) Comments:Follow-up as needed [facility] 10-13-2023 Note Discharge Instructions Thank you for allowing [facility] to assist you with your healthcare needs. The following is importantdischarge information regarding your hospital visit. Your Care Team DAVE LE DO, Dr. What to do next Scheduled Follow-Up Appointments Appointment Type When With Where Contact InformationPC OV 08/07/2023 04:30 PM EDT DAVE LE DO [address] [phone] Follow Up Appointments Follow Up with KIT CELIS MD When In 10 years Why: Follow-up as needed Where: [address] [place] [address] [phone] Allergies Iron Supplement (Nausea) codeine (nausea) erythromycin (nausea) Medications Please ask your primary doctor or pharmacist before taking any other medication not listed, including over the counter drugs, herbal medications, vitamins and or supplements as they may interact [facility]. What When Instructions Last Dose Unchanged Misc Medication ([employer] STOOL SOFTENER 240 MG SFGL) 1 CAP(S) ORAL DAILY,X30 DAY(S),PRN: NEEDED FOR CONSTIPATION,INSTR:WITH PLENTY OF WATER Please take this list to your next doctor s visit. Bring all medications you take, including over the counter medications, herbals and other supplements with you to your doctor s visit. Patients and families are reminded to discard old lists and to update any records with all medication providers or retail pharmacies. Education Materials Nausea and Vomiting, Adult Nausea is the feeling that you have an upset stomach or that you are about to vomit. Vomiting is when stomach contents are thrown up and out of the mouth as a result of nausea. Vomiting can make you feel weak and cause you to become dehydrated. Dehydration can make you feel tired and thirsty, cause you to have a dry mouth, and decrease how often you urinate. Older adults and people with other diseases or a weak disease-fighting system (immune system) are at higher risk for dehydration. It is important to treat your nausea and vomiting as told by your health care provider. Follow these instructions at home: Watch your symptoms for any changes. Tell your health care provider about them. Follow these instructions to care for yourself at home. Eating and drinking Take an oral rehydration solution (ORS). This is a drink that is sold at pharmacies and retail stores. Drink clear fluids slowly and in small amounts as you are able. Clear fluids include water, ice chips, low-calorie sports drinks, and fruit juice that has water added (diluted fruit juice). Eat bland, hujb-be-yfbuso foods in small amounts as you are able. These foods include bananas, applesauce, rice, lean meats, toast, and crackers. Avoid fluids that contain a lot of sugar or caffeine, such as energy drinks, sports drinks, and soda. Avoid alcohol. Avoid spicy or fatty foods. General instructions Take rips-oqp-ennqatd and prescription medicines only as told by your health care provider. Drink enough fluid to keep your urine pale yellow. Wash your hands often using soap and water. If soap and water are not available, use hand treasury assistant. Make sure that all people in your household wash their hands well and often. Rest at home while you recover. Watch your condition for any changes. Breathe slowly and deeply when you feel nauseated. Keep all follow-up visits as told by your health care provider. This is important. Contact a health care provider if: Your symptoms get worse. You have new symptoms. You have a fever. You cannot drink fluids without vomiting. Your nausea does not go away after 2 days. You feel light-headed or dizzy. You have a headache. You have muscle cramps. You have a rash. You have pain while urinating. Get help right away if: You have pain in your chest, neck, arm, or jaw. You feel extremely weak or you faint. You have persistent vomiting. You have vomit that is bright red or looks like black coffee grounds. You have bloody or black stools or stools that look like tar. You have a severe headache, a stiff neck, or both. You have severe pain, cramping, or bloating in your abdomen. You have difficulty breathing, or you are breathing very quickly. Your heart is beating very quickly. Your skin feels cold and clammy. You feel confused. You have signs of dehydration, such as: ? Dark urine, very little urine, or no urine. ? Cracked lips. ? Dry mouth. ? Sunken eyes. ? Sleepiness. ? Weakness. These symptoms may represent a serious problem that is an emergency. Do not wait to see if the symptoms will go away. Get medical help right away. Call your local emergency services (911 in the [place] Do not drive yourself to the hospital. Summary Nausea is the feeling that you have an upset stomach or that you are about to vomit. As nausea getsworse, it can lead to vomiting. Vomiting can make you feel weak and cause you to become dehydrated. Follow instructions from your health care provider about eating and drinking to prevent dehydration. Take uyej-wnl-llumvln and prescription medicines only as told by your health care provider. Contact your health care provider if your symptoms get worse, or you have new symptoms. Keep all follow-up visits as told by your health care provider. This is important. This information is not intended to replace advice given to you by your health care provider. Make sure you discuss any questions you have with your health care provider. Document Released: 09/29/2006 Document Revised: 01/21/2020 Document Reviewed: 03/09/2019 ElseSubtext Patient Education 2020 [employer]. Monitored Anesthesia Care, Care After These instructions provide you with information about caring for yourself after your procedure. Your health care provider may also give you more specific instructions. Your treatment has been plannedaccording to current medical practices, but problems sometimes occur. Call your health care provider if you have any problems or questions after your procedure. What can I expect after the procedure? After your procedure, you may: Feel sleepy for several hours. Feel clumsy and have poor balance for several hours. Feel forgetful about what happened after the procedure. Have poor judgment for several hours. Feel nauseous or vomit. Have a sore throat if you had a breathing tube during the procedure. Follow these instructions at home: For at least 24 hours after the procedure: Have a responsible adult stay with you. It is important to have someone help care for you until youare awake and alert. Rest as needed. Do not: ? Participate in activities in which you could fall or become injured. ? Drive. ? Use heavy machinery. ? Drink alcohol. ? Take sleeping pills or medicines that cause drowsiness. ? Make important decisions or sign legal documents. ? Take care of children on your own. Eating and drinking Follow the diet that is recommended by your health care provider. If you vomit, drink water, juice, or soup when you can drink without vomiting. Make sure you have little or no nausea before eating solid foods. General instructions Take cbre-mor-swyfsos and prescription medicines only as told by your health care provider. If you have sleep apnea, surgery and certain medicines can increase your risk for breathing problems. Follow instructions from your health care provider about wearing your sleep device: ? Anytime you are sleeping, including during daytime naps. ? While taking prescription pain medicines, sleeping medicines, or medicines that make you drowsy. If you smoke, do not smoke without supervision. Keep all follow-up visits as told by your health care provider. This is important. Contact a health care provider if: You keep feeling nauseous or you keep vomiting. You feel light-headed. You develop a rash. You have a fever. Get help right away if: You have trouble breathing. Summary For several hours after your procedure, you may feel sleepy and have poor judgment. Have a responsible adult stay with you for at least 24 hours or until you are awake and alert. This information is not intended to replace advice given to you by your health care provider. Make sure you discuss any questions you have with your health care provider. Document Released: 01/19/2017 Document Revised: 12/28/2018 Document Reviewed: 01/19/2017 PAK Patient Education [employer] Colonoscopy, Adult, Care After This sheet gives you information about how to care for yourself after your procedure. Your health care provider may also give you more specific instructions. If you have problems or questions, contact your health care provider. What can I expect after the procedure? After the procedure, it is common to have: A small amount of blood in your stool for 24 hours after the procedure. Some gas. Mild abdominal cramping or bloating. Follow these instructions at home: General instructions For the first 24 hours after the procedure: ? Do not drive or use machinery. ? Do not sign important documents. ? Do not drink alcohol. ? Do your regular daily activities at a slower pace than normal. ? Eat soft, alvq-hz-rungpt foods. Take cehv-wss-ssubgdt or prescription medicines only as told by your health care provider. Relieving cramping and bloating Try walking around when you have cramps or feel bloated. Apply heat to your abdomen as told by your health care provider. Use a heat source that your healthcare provider recommends, such as a moist heat pack or a heating pad. ? Place a towel between your skin and the heat source. ? Leave the heat on for 20 30 minutes. ? Remove the heat if your skin turns bright red. This is especially important if you are unable to feel pain, heat, or cold. You may have a greater risk of getting burned. Eating and drinking Drink enough fluid to keep your urine pale yellow. Resume your normal diet as instructed by your health care provider. Avoid heavy or fried foods thatare hard to digest. Avoid drinking alcohol for as long as instructed by your health care provider. Contact a health care provider if: You have blood in your stool 2 3 days after the procedure. Get help right away if: You have more than a small spotting of blood in your stool. You pass large blood clots in your stool. Your abdomen is swollen. You have nausea or vomiting. You have a fever. You have increasing abdominal pain that is not relieved with medicine. Summary After the procedure, it is common to have a small amount of blood in your stool. You may also have mild abdominal cramping and bloating. For the first 24 hours after the procedure, do not drive or use machinery, sign important documents, or drink alcohol. Contact your health care provider if you have a lot of blood in your stool, nausea or vomiting, a fever, or increased abdominal pain. This information is not intended to replace advice given to you by your health care provider. Make sure you discuss any questions you have with your health care provider. Document Released: 05/13/2005 Document Revised: 07/22/2018 Document Reviewed: 12/10/2016 PAK Patient Education 2020 [employer]icanvas. Additional Information VACCINATE! IT SAVES LIVES! Members of the community who have not yet received the COVID-19 vaccine and would like to receive it can visit one of [facility] vaccine clinics. There are many vaccine clinic locations within the [facility]. For locations and available times, please visit [email or web address] It is important to note that some COVID mobile vaccine clinics are held outdoors and may be canceled in rainy or stormy conditions. To learn more about pediatric vaccinations (ages 5-11), we invite you to visit the [facility] webpage. [email or web address] [email or web address] learn more about the COVID-19 vaccine, we invite you to visit the CDC website for a list of frequently asked questions.https://www.cdc.gov/coronavirus/2019-ncov/vaccines/faq.html [facility] Patient Portal Access Instructions: Stay connected with your healthcare team and access your personal medical information anytime with the [facility] Patient Portal. Please follow the directions below to create your [facility] account: 1.Access the email account you provided upon registration to the hospital/physician office.2.Look for an invitation email from [facility].3.Open the email and access the invitation link: AcceptInvitation to [place] [facility].4.Fill in the required call to create your account. To access your account, visit [email or web address]. Click the blue button labeled Access Patient Portal and then log in with the username and password that you created in the steps above. You will be able to view your test results, lab results, a summary of your visits, upcoming appointments and more. There is also a convenient messaging option where you can send secure messages to your p Klevostivider. In addition, you will have the ability to download any documents or summaries to your computer and/or send the information securely to a physician. Remember that your healthcare information is confidential, so carefully consider who you will allowto register on the [facility] Patient Portal for access to your information. You can also access the [facility] Portal on the [place] [facility] yoan. Simply click on Patient Portal and then log into your account. If you would like to receive a full copy of your medical records, please contact the [facility] Medical Records Department by calling [phone], Friday through Friday between 8 a.m. and 4:30 p.m. HOW TO SAFELY DISPOSE OF PRESCRIPTION MEDICATIONS Please use one of the following methods to safely dispose of your unused medications. 1.Use a drug disposal kit: the drug disposal pouch allows you to safely discard your old and unuseddrugs. Ask your nurse to give you one when you are discharged.2.Visit a local take-back location: Many local pharmacies and police departments have programs that collect old and unwanted prescriptiondrugs. Call your local pharmacy or go to http://bit.ly/9W4Po1o to find one close to you.3.Make use of household items: Use cat litter or old coffee grounds to dispose medications if other options arenot available. Mix your drugs with these household products, seal them in an airtight container andthrow it into the garbage. Call [facility]: [phone] to be sure your drugs can be disposed of in this way. Some medicines may require a different approach.4.Never flush your medications down the toilet. IF YOU HAVE BEEN PRESCRIBED AN OPIOID FOR PAIN If you have been prescribed an opioid (such as hydrocodone, oxycodone or morphine), it is critical to understand the possible side effects and risks of opioid pain medications. Even when taken as directed, opioids can have several side effects including: Tolerance, meaning you might need to take more of a medication for the same pain relief. Nausea, vomiting and/or constipation. Sleepiness, dizziness, dry mouth, confusion, depression or itching. Physical dependence, meaning you have withdrawal symptoms when a medication is stopped, can develop within a few days. KNOW YOUR RESPONSIBILITIES It is important to know exactly how much and how often to take the opioid pain medications you are prescribed. Never take opioids in higher amounts or more often than prescribed. Do not combine opioids with alcohol or other drugs that cause drowsiness, such as benzodiazepines, also known as benzos, including diazepam and alprazolam, muscle relaxants or sleep aids. Never sell or share prescription opioids. This is illegal. Store opioids in a secure place and out of reach of others (including children, family, friends and visitors). The last page of this document has been signed and retained as a CHART COPY. Signatures Patient Education Materials Nausea and Vomiting, Adult Monitored Anesthesia Care, Care After Colonoscopy, Adult, Care After Medication Leaflets My discharge plan and instructions have been reviewed and explained to me and I,ESTIVEN HERNANDEZ understand my current condition and have read and understand these discharge instructions. I have received a written copy of the plan/instructions. If I have questions, I am aware that I should contact my doctor. 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: Date/Time: Relationship to Patient: Witness Name/Signature: [facility] [place] ADMISSION HISTORY AND PHYSICIAL CHIEF COMPLAINT: HISTORY OF PRESENT ILLNESS: REVIEW OF SYSTEMS: ACTIVE PROBLEMS: (24) Acute depression (1207857462) Back pain ([id number]) BPPV (benign paroxysmal positional vertigo) (962403543) Constipation in female (56918797) Dizziness (3483706648) Hematuria (222757771) History of cold sores (555200469) Hot flashes (973837124) Hyperglycemia (587099331) Hyperlipidemia, mixed (927575214) Left ear pain (67580016) LGSIL on Pap smear of cervix (4795862809) Lichen sclerosus (0281083071) Lumbar disc disease with radiculopathy (954841990) Lymphadenitis, acute (317846037) Positive depression screening (810571494) Post-menopausal bleeding (059493475) Prediabetes (1772645777) Screening for hyperlipidemia (407997501) Shingles (8274069) Skin lesion (495663676) Tonsillar exudate (387716656) Vaginal dryness (44056653) 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 Weights display the last 5 within 7 days. Initial Wt: 07/25 106.8 kg 235 lb Current Wt: 07/25 106.8 kg 235 lb GENERAL: HEENT: CARDIOVASCULAR: RESPIRATORY: ABDOMEN: EXREMETIES: NEUROLOGICAL: PSYCHIATRIC: LABS: No 36hr Lab Data DIAGNOSTICS: IMPRESSION: PLAN: History and Physical Update I have examined the patient; reviewed the H&P and there are no changes to the H&P unless noted below. Digitally Signed by KIT CELIS MD on 07/25/2023 08:33 AM [facility]10-13-2023 Anesthesiology Consult note Patient: ESTIVEN HERNANDEZ Age: 63 years Sex: Female : 1960 Associated Diagnoses: None Author: SOULEYMANE FISH HEAD SAWYER-NURSING CARE ATTENDANT Preoperative Information Anesthesia history Patient's history: negative. Family's history: negative. Health Status Allergies: Allergic Reactions (Selected) Severity Not Documented Codeine- Nausea. Erythromycin- Nausea. Iron Supplement- Nausea., Allergies (3) ActiveReaction codeinenausea erythromycinnausea Iron SupplementNausea Current medications: (Selected) Inpatient Medications Ordered LR 1,000 mL: 50 mL/hr, Intravenous Documented Medications Documented [employer] STOOL SOFTENER 240 MG SFGL: 1 CAP(S) ORAL DAILY,X30 DAY(S),PRN: NEEDED FOR CONSTIPATION,INSTR:WITH PLENTY OF WATER, Medications (1) Active Scheduled: (0) Continuous: (1) Lactated Ringers 1,000 mL 1,000 mL, Intravenous, 50 mL/hr PRN: (0) Problem list: Medical Acute depression / SNOMED CT 2921334029 / Confirmed Lymphadenitis, acute / SNOMED CT 770069433 / Confirmed Back pain / SNOMED CT [id number] / Confirmed BPPV (benign paroxysmal positional vertigo) / SNOMED CT 949888124 / Confirmed Hematuria / SNOMED CT 993034246 / Confirmed Constipation in female / SNOMED CT 87053367 / Confirmed VGKC antibody syndrome / SNOMED CT 3852534561 / Confirmed Dizziness / SNOMED CT 4427547489 / Confirmed Tonsillar exudate / SNOMED CT 489426345 / Confirmed Hot flashes / SNOMED CT 539657018 / Confirmed History of cold sores / SNOMED CT 028875022 / Confirmed Shingles / SNOMED CT 1700514 / Confirmed Hyperglycemia / SNOMED CT 961784363 / Confirmed Lichen sclerosus / SNOMED CT 3543719353 / Confirmed LGSIL on Pap smear of cervix / SNOMED CT 8786924513 / Confirmed Lumbar disc disease with radiculopathy / SNOMED CT 684236186 / Confirmed Positive depression screening / SNOMED CT 336509460 / Confirmed Hyperlipidemia, mixed / SNOMED CT 784780221 / Confirmed Left ear pain / SNOMED CT 62065352 / Confirmed Screening for hyperlipidemia / SNOMED CT 770951461 / Confirmed Post-menopausal bleeding / SNOMED CT 194115249 / Confirmed Prediabetes / SNOMED CT 3957587983 / Confirmed Skin lesion / SNOMED CT 073320035 / Confirmed Vaginal dryness / SNOMED CT 80714874 / Confirmed, Active Problems (24) Acute depression Back pain BPPV (benign paroxysmal positional vertigo) Constipation in female Dizziness Hematuria History of cold sores Hot flashes Hyperglycemia Hyperlipidemia, mixed Left ear pain LGSIL on Pap smear of cervix Lichen sclerosus Lumbar disc disease with radiculopathy Lymphadenitis, acute Positive depression screening Post-menopausal bleeding Prediabetes Screening for hyperlipidemia Shingles Skin lesion Tonsillar exudate Vaginal dryness VGKC antibody syndrome Histories Past Medical History: No active or resolved past medical history items have been selected or recorded. Family History: Breast cancer Grandparent Hypertension Father Heart disease Mother Atrial fibrillation Mother Parkinson disease Father Cancer Mother Comments: 04/12/2019 16:36 Stormy Toure LPN colon Grandparent Comments: 04/12/2019 16:36 Stormy Toure LPN breast HTN - Hypertension Father Mother Diabetes Mother Colon cancer Mother Parkinsons disease Father Diabetes 10-Apr-2016 02:33:12<$> Mother Father Procedure history: Hysterectomy ([id number]) on 10/20/2014 at 54 Years. Comments: 11/26/2019 8:09 EST - DAVE LE DO Vaginal, with bilateral salpingo-oophorectomy and lysis of adhesions LEEP (65514077) in 2011 at 52 Years. Salpingectomy, bilateral (8243402404) in 1993 at 34 Years. Shoulder repair (7575465107). Comments: 03/06/2017 10:06 KAILEY ERNANDEZ RN right rotator cuff repair Cholecystectomy (85021184). Comments: 03/06/2017 10:06 KAILEY ERNANDEZ RN open delivery delivered ([id number]). Comments: 03/06/2017 10:07 KAILEY ERNANDEZ RN 3 C-sections Social History Social & Psychosocial Habits Alcohol 07/25/2023Risk Assessment: Low Risk 07/25/2023 Use: Current Frequency: 1-2 times per month Employment/School 06/20/2023 Status: Employed Activity level: Occasional physical work Substance Abuse 07/25/2023Risk Assessment: No Risk 07/25/2023 Use: Never Tobacco 07/25/2023 Tobacco Use: Never (less than 100 in l Comment: no smoke exposure - 11/26/2019 14:57 - Pallavi Le RN Exercise 06/20/2023 Times per week: 3-4 times/week Home/Environment 07/25/2023 Primary Negative Cutter: self and Nutrition/Health 07/25/2023 Caffeine intake amount: coffee, tea 1 serving daily . Physical Examination Vital Signs 07/25/2023 7:41 EDT Temperature Temporal Artery 36.4 DegC Apical Heart Rate 71 bpm Respiratory Rate 18 br/min Systolic Blood Pressure Non-Invasive 132 mmHg Diastolic Blood Pressure Non-Invasive 73 mmHg Vital Signs(last 24 hrs) Last Charted Resp Rate 18 br/min (JUL 25 07:41) IGW973 mmHg (JUL 25 07:41) DBP73 mmHg (JUL 25 07:41) Measurements from flowsheet : Measurements 07/25/2023 7:41 EDT Height 165.1 cm Admission Weight 106.8 kg [place] Body Weight 57.00 kg Admission Body Mass Index 39.18 m2 07/25/2023 7:33 EDT Height 165.1 cm [place] Body Weight 57.00 kg Pain assessment: Pain Assessment 07/25/2023 7:41 EDT Pain Scale Type 0-10 Pain scale . General: Alert and oriented. Airway: Normal temporomandibular joint mobility. Mallampati classification: II (soft palate, fauces, uvula visible). Dentition Evaluation: Denies loose/chipped teeth. Respiratory: Lungs are clear to auscultation, Respirations are non-labored. Cardiovascular: Normal rate, Regular rhythm. Neurologic: Alert, Oriented. Review / Management Results review: No qualifying data available , Lab results 07/25/2023 7:59 EDT Antecubital Right 22 gauge Peripheral IV Activity: Insert new site Peripheral IV Dressing Condition: Clean, Dry, Intact Peripheral IV Dressing Activity: Transparent dressing Peripheral IV Line Status/Patency: Continuous infusion Peripheral IV Site Condition: No complications Peripheral IV Site Care: Direct pressure applied Peripheral IV Number of Attempts: 1 07/25/2023 7:54 EDT Lactated Ringers Injection Begin Bag 1,000 mL mL 07/25/2023 7:41 EDT Height 165.1 cm Admission Weight 106.8 kg [place] Body Weight 57.00 kg Admission Body Mass Index 39.18 m2 Temperature Temporal Artery 36.4 DegC Apical Heart Rate 71 bpm Respiratory Rate 18 br/min Systolic Blood Pressure Non-Invasive 132 mmHg Diastolic Blood Pressure Non-Invasive 73 mmHg Pain Scale Type 0-10 Pain scale Heart Rhythm Regular Respirations Unlabored Respiratory Pattern Regular All Lobes Breath Sounds Clear Cough None Oxygen Therapy Room air Oxygen Saturation 96 % Abdomen Description Non-distended, Soft Bowel Sounds All Quadrants Present Skin Temperature Warm Skin Description [place], Normal for ethnicity, Dry Skin Integrity Intact Mucous Membrane Color [place] Skin Moisture General Dry Characteristics of Speech Clear Level of Consciousness Alert Affect/Behavior Appropriate, Calm, Cooperative Orientation Oriented x 4 Orientation Assessment Oriented x 4 Assistive Device None Standard Safety ID band on, Allergy Band on, Call device within reach, Bed in low position, Wheels locked 07/25/2023 7:33 EDT Designated Person #1 We May Share [facility] Nixon Neyda [phone] Designated Person #1 Relationship Spouse Designated Person #2 We May Share JALIL Khan [phone] Designated Person #2 Relationship Daughter Privacy Restrictions Requested None Height 165.1 cm [place] Body Weight 57.00 kg Status No, per patient Sensory Deficits None Infectious Disease Symptoms Patient states no symptoms Infectious Disease Recent Exposure No Alcohol and Drug Use No Employee of Institutional Living No Health Care Employee No History of Exposure to TB No History of Positive Chest X-Ray for TB No History of Positive TB Skin Test No Homeless No Known Immunosuppression No Recent Immigrant No Resident of Institutional Living No Bloody Sputum No Fatigue No Fever No Loss of Appetite No Night Sweats No Persistent Cough > 3 Weeks No Weight Loss No Barriers to Learning None evident Teaching Method Printed materials Preferred Spoken Language Kiswahili Preferred Written Language Kiswahili Information Given by Patient Patient's Current Physicians Dr. Le Discharge To, Anticipated Home with family care Prev Test Positive/Diagnosis w/COVID-19 Yes Previous COVID-19 Positive Date 2022 Current Quarantine/Isolated any Illness No Any Contact with Sick Animals/Birds No Traveled Anywhere in Last 30 Days No No Personal Devices, Patient Valuables None Admission Note-Nursing Procedure/Therapy Intake 07/25/2023 7:27 EDT Urinary Elimination Voiding, no difficulties IV Present Present Allergies Yes Anesthesia Extension Set Applied Yes Head Machinist On Yes Colon Prep Results Excellent Consent Form Signed Yes Patient Dressed In Hospital gown History & Physical Update On Chart Yes History & Physical On Chart Yes Obstructive Sleep Apnea Assess Completed No Belongings At Bedside Shirt, Shoes, Shorts Personal Home Medications Received No home medications were brought in NPO Status Maintained Allergy Band on and Verified Yes Patient ID Band on and Verified Yes Implants Verified Yes Pacemaker/AICD Verified Yes Site Verified by Patient/Family Yes Anesthesia Consent Signed Yes Last Fluid Intake 07/25/2023 5:30 Last Food Intake 07/24/2023 19:00 . Assessment and Plan [place] [employer]hesi[employer] (ASA) physical status classification: Class II. Anesthetic Preoperative Plan Anesthetic technique: MAC. Postoperative pain management: Per surgeon. Risks discussed: nausea, vomiting, hypotension, allergic reaction, serious complications. Informed consent: signed by patient. Digitally Signed by SOULEYMANE FISH on 07/25/2023 08:10 AM [facility]08-25-2023 Telephone encounter Note* Telephone Encounter - Miri Crawford RN - 06/06/2023 1:01 PM EDT S: Patient spoke with [facility] nurse regarding Medications for lichen sclerosis B: Onset of symptoms/concern 2 weeks ago A: Patient is having a flare of her lichen sclerosus and using Betamethasone 0.05% twice a day thatwas written by her primary Dr Le at [facility]. She is taking ibuprofen, but requesting ifOBGYN can call something different in for her. R: Patient advised refer back to her Primary until new patient visit with Dr Norman 07/11/23 Patient understands care advice. No further needs at this time. Patient instructed to call back with new or worsening symptoms. Reason for Disposition Caller has NON-URGENT medicine question about med that PCP or specialist prescribed and triager unable to answer question Protocols used: Medication Question [id number] [id number] Miscellaneous Notes* Telephone Encounter - Miri Crawford RN - 06/06/2023 1:01 PM EDT S: Patient spoke with [facility] nurse regarding Medications for lichen sclerosis B: Onset of symptoms/concern 2 weeks ago A: Patient is having a flare of her lichen sclerosus and using Betamethasone 0.05% twice a day thatwas written by her primary Dr Le at [facility]. She is taking ibuprofen, but requesting ifOBGYN can call something different in for her. R: Patient advised refer back to her Primary until new patient visit with Dr Norman 07/11/23 Patient understands care advice. No further needs at this time. Patient instructed to call back with new or worsening symptoms. Reason for Disposition Caller has NON-URGENT medicine question about med that PCP or specialist prescribed and triager unable to answer question Protocols used: Medication Question [id number] documented in this [id number] Note. MICRO - Microbiology PROCEDURE: Urine Culture [*1] SOURCE: Urine, Clean Catch BODY SITE: COLLECTED DATE/TIME: 05/30/2023 10:42 EDT RECEIVED DATE/TIME: 05/30/2023 19:12 EDT START DATE/TIME: 05/30/2023 19:12 EDT FREE TEXT SOURCE: FINAL REPORTS Final Report [] Verified Date/Time/Personnel: 06/01/2023 07:35 EDT 50,000 - 100,000 cfu/ml Mixed growth consistent with normal urogenital bossman. PRELIMINARY REPORTS Preliminary Report [] Verified Date/Time/Personnel: 05/31/2023 09:50 EDT No growth to date Performing Locations *1: This test was performed at: [facility], [address] [place] [address], [id number] , [facility] ([place])Evaluation + Plan note Future Appointments Appointment Date:06/25/2023 03:30:00 PM Scheduled Provider: Location:[facility] Appointment Type:MA Mammogram Screening Bilateral w/ Link Future Scheduled Tests Laboratory* Basic Metabolic Panel 04/30/23 * Complete Blood Count 04/30/23 * Lipid Profile 04/30/23 * Hepatitis C Antibody IgG 04/30/23 Radiology* MA Mammo Screening Bilateral w/ Link 06/25/23 [facility] Evaluation + Plan note Future Appointments Appointment Date:06/25/2023 03:30:00 PM Scheduled Provider: Location:[facility] Appointment Type:MA Mammogram Screening Bilateral w/ Link Future Scheduled Tests Laboratory* Urinalysis 06/20/23 Radiology* MA Mammo Screening Bilateral w/ Link 06/25/23 [facility] Evaluation + Plan note Future Appointments Appointment Date:08/07/2023 04:30:00 PM Scheduled Provider:DAVE LE DO Location:[facility] Appointment Type:PC OV Future Scheduled Tests Laboratory* Urinalysis 06/20/23 [facility] Evaluation + Plan note Future Appointments Appointment Date:10/30/2023 04:00:00 PM Scheduled Provider:DAVE LE DO Location:[facility] Appointment Type:PC OV Diagnostic Tests Pending * Urine Culture 08/11/23 * .DINORAH by IFA Screen 08/11/23 * Rheumatoid Factor 08/11/23 [facility] Evaluation + Plan note Future Appointments Appointment Date:10/14/2024 04:00:00 PM Scheduled Provider: Location:[facility] Appointment Type:Echo - Echocardiogram Adult Appointment Date:10/27/2024 04:00:00 PM Scheduled Provider:DAVE LE DO Location:[facility] Appointment Type:PC OV Future Scheduled Tests Laboratory* Magnesium Level 10/06/23 [facility] Evaluation + Plan note Future Appointments Appointment Date:10/27/2024 04:00:00 PM Scheduled Provider:DAVE LE DO Location:[facility] Appointment Type:PC OV Future Scheduled Tests Laboratory* Intrinsic Factor Abs, Serum 10/05/24 * Magnesium Level 11/11/24 * Gastrin Serum 10/05/24 [facility] Evaluation + Plan note Future Appointments Appointment Date:10/27/2024 04:00:00 PM Scheduled Provider:DAVE LE DO Location:[facility] Appointment Type:PC OV Diagnostic Tests Pending * Intrinsic Factor Abs, Serum 10/20/24 [facility] Hospital course Narrative No data available for this section [facility] Hospital Discharge instructions No data available for this section [facility] Progress note No data available for this section [facility] Reason for referral (narrative)No reason for referral information availableWChillicothe [facility] Work Phone: Summary Purpose Family History Relationship Condition Age at Onset Recorded Date/T ravi mother Atrial fibrillation Unknown Hypertension Unknown Malignant neoplasm of colon Unknown father Hypertension Unknown Parkinson's disease Unknown No Family History Records Found Advance Directives No Advanced Directives Records Found Advance Directive Response Recorded Date/ Time Advance Directives Yes October 20, 2014 5:26pm Chief Complaint and Reason for Visit Chief Complaint Admit Date LICHEN SCLEROSIS ([facility]YS) January 27, 2025 2:57pm Reason for Visit Admit Date Lichen sclerosus January 27, 2025 2:5 7pm Vaginal discharge January 27, 2025 2:5 7pm Chief Complaint Admit Date LICHEN SCLEROSIS ([facility] FAM PHYS) January 27, 2025 2:57pm 6 WK MED CHECK March 10, 2025 3:25p m Reason for Visit Admit Date Lichen sclerosus January 27, 2025 2:5 7pm Vaginal discharge January 27, 2025 2:5 7pm Lichen sclerosus March 10, 2025 3:25p m Vaginal lesion March 10, 2025 3:25p m Additional Source Comments Patient Care team informatio n (unrecognized section and content) Team Status: Active Member Role Status Dates Dr. Ty Ackerman MD Family Provider Active Team Status: Inactive Member Role Status Dates NANCY Benítez Attending Provider Active Start: January 27, 2025 End: January 27, 2025 Team Status: Inactive Member Role Status Dates NANCY Benítez Attending Provider Active Start: January 27, 2025 End: January 27, 2025 NANCY Benítez Referring Provider Active Start: January 27, 2025 End: January 27, 2025 Team Status: Inactive Member Role Status Dates NANCY Benítez Attending Provider Active Start: March 10, 2025 End: March 10, 2025 Reason for Visit (unrecogniz ed section and content) Reason Onset Date Comments Medication Question 06/06/2023 INFORMATION SOURCE (unrecogn ized section and content) DATE CREATED AUTHOR 06/07/2023 [facility] DATE CREATED AUTHOR AUTHOR'S ORGANIZ ATION 05/15/2024 [facility] ([place]) DATE CREATED AUTHOR AUTHOR'S ORGANIZ ATION 11/16/2024 [facility] DATE CREATED AUTHOR AUTHOR'S ORGANIZ ATION 03/16/2025 [facility] Goals (unrecognized section and content) Goals may be documented in a n alternate section FOR RECORDS PERTAINING TO PATIENTS WHO ARE OR HAVE BEEN ENROLLED IN A CHEMICAL DEPENDENCY/SUBSTANCEABUSE PROGRAM, SOME INFORMATION MAY BE OMITTED. This clinical summary was aggregated from multiple sources. Caution should be exercised in using it in the provision of clinical care. This summary normalizes information from multiple sources, and as a consequence, information in this document may materially change the coding, format and clinical context of patient data. In addition, data may be omitted in some cases. CLINICAL DECISIONS SHOULD BE BASED ON THE PRIMARY CLINICAL RECORDS. [employer] [facility]. provides no warranty or guarantee of the accuracy or completeness of information in this document.
[2025-03-22 05:07] LABS: HSV 1 IgG Reactive (Non Reactive); HSV 2 IgG Reactive (Non Reactive)
== END | disposition home or self-care (01) ==
PROVIDERS: Referring Provider Nurse Practitioner Family; Visit Provider Nurse Practitioner Family
DX: N89.8 Other specified noninflammatory disorders of vagina (principal)
CPT/HCPCS: 36415; 86695; 86696